=== PATIENT | female | born 1935 | race Caucasian/White ===

== ENCOUNTER 2016-07-25 19:22 | Emergency (ER) | payer MEDICARE ==
[~2016-07-25] VITALS: Ht 160 cm; Wt 61.2 kg
[~2016-07-25 19:22] MED LIST: ASPIRIN ADULT L81 M1 PO; CALCIUM + D 6001 TA1 PO; CALCIUM CARBONA1 TA1 PO; CALCIUM CITRAT200 MG PO; CARDIZEM120 MG PO; CEFTIN500 MG PO; CELEBREX200 MG PO; COLACE100 MG PO; COLACE100 MG/10; CORDROL20 MG PO; COUMADIN5 M2 PO; CYCLOBENZAPRINE5 M3 PO; DILTIAZEM120 MG PO; DUONEB 3 MG/3 ML3 M1 INH; Diltiazem180 MG PO; ELAVIL10 MG PO; FLOVENT 110 M110 MCG INH; FOSAMAX70 M1 PO; LISINOPRIL10 MG PO; LOMOTIL 0.025 M1 TA1 PO; LOPRESSOR25 MG PO; LYRICA50 M1 PO; MACROBID100 M1 PO; MULTI VITAMINS1 TAB PO; MYCOSTATIN100000 U/M PO; NEURONTIN300 MG PO; NEUTRA-PHOS F1.25 GM PO; PRAVACHOL40 MG PO; PRILOSEC OTC20 MG PO; PRILOSEC10 MG PO; PRILOSEC20 M1 PO; TESSALON PERLE100 M1 PO; TYLENOL325 M1 PO; TYLENOL650 MG R; VICODIN1 TAB PO
== END 2016-07-25 21:33 | disposition home or self-care (01) ==
LOC: ED 19:22
DX: S01.01XA Laceration without foreign body of scalp, initial encounter (principal); S09.90XA Unspecified injury of head, initial encounter; M25.551 Pain in right hip; Z86.73 Personal history of transient ischemic attack (TIA), and cerebral infarction without residual deficits; Z98.890 Other specified postprocedural states; Z79.82 Long term (current) use of aspirin; Z79.899 Other long term (current) drug therapy; Z88.6 Allergy status to analgesic agent; W18.09XA Striking against other object with subsequent fall, initial encounter; Y93.89 Activity, other specified; Y92.090 Kitchen in other non-institutional residence as the place of occurrence of the external cause; Y99.9 Unspecified external cause status

== ENCOUNTER 2017-01-01 21:12 | Emergency (ER) | payer MEDICARE ==
[~2017-01-01] VITALS: Ht 157.4 cm; Wt 56.7 kg
== END 2017-01-02 00:12 | disposition home or self-care (01) ==
LOC: ED 21:12
DX: S00.83XA Contusion of other part of head, initial encounter (principal); S09.93XA Unspecified injury of face, initial encounter; Z98.890 Other specified postprocedural states; Z79.82 Long term (current) use of aspirin; Z79.899 Other long term (current) drug therapy; Z88.6 Allergy status to analgesic agent; W01.198A Fall on same level from slipping, tripping and stumbling with subsequent striking against other object, initial encounter; Y93.89 Activity, other specified; Y92.89 Other specified places as the place of occurrence of the external cause; Y99.9 Unspecified external cause status

== ENCOUNTER 2017-04-05 22:02 | Inpatient (IN) | payer MEDICARE ==
[~2017-04-05] VITALS: Ht 162.5 cm; Wt 61.3 kg
--- NOTE | ~2017-04-05 | EKG ---
[place], [place] ELECTROCARDIOGRAM REPORT NAME: MARITO TOLBERT UNIT #: [id number] ROOM: 506 DOCTOR: RUI STERN MD,MANDI BIRTHDATE: [birth year] DOS: 04/06/2017 TIME: 10:43 p.m. Normal sinus rhythm was noted with heart rate of 98 beats per minute. LVH was noted based on the LVH criteria for the patient in the chest leads. Inversion of the T wave was also noted, most likely due to the LVH in the chest leads. MANDI FABIAN MD CM:EKGRPT:ELECTROCARDIOGRAM REPORT 39 [id number] MANDI STERN MD
--- NOTE | ~2017-04-05 | PR ---
[place], [place] PROGRESS NOTE NAME: MARITO TOLBERT UNIT #: [id number] ROOM: 506 DOCTOR: RUI STERN MD,MANDI BIRTHDATE: [birth year] DOS: 04/08/2017 SUBJECTIVE: She has been noted comfortable at this time without any acute distress. The coughing has been subsiding. Shortness of breath has been ____ gradually. The patient denies symptoms of hemoptysis. There were no sputum expectoration. OBJECTIVE: VITAL SIGNS: Normal temperature, respiratory rate 18, heart rate 99, blood pressure 127/74, pulse oxygen saturation on 2 liters nasal cannula 95% saturation recorded. HEENT: No acute change. NECK: Supple. CARDIOVASCULAR: S1, S2 audible. LUNGS: The patient was noted without any wheeze or crackles. ABDOMEN: Soft, nontender. EXTREMITIES: Without edema. LABORATORY DATA: BMP: CBC noted normal WBC count. BMP was still noted with hyponatremia, sodium 128. IMPRESSION: 1. Abnormal lymphadenopathy in the right hilar area with pulmonary infiltration. 2. Acute pneumonia as well was suspected. PLAN OF MANAGEMENT: No changes in the plan of management from pulmonary standpoint. Continue antibiotics, bronchodilators and oxygen supplementation. Obtain a chest x-ray in the morning to reassess the patient, respiratory ____ progression of the current right lung pulmonary process. MANDI FABIAN MD CM:PNTRANS [id number] MANDI STERN MD 04/09/17209 interface
--- NOTE | ~2017-04-05 | PR ---
[place], [place] PROGRESS NOTE NAME: MARITO TOLBERT UNIT #: [id number] ROOM: 506 DOCTOR: MANDI LUEVANO MD BIRTHDATE: [birth year] DOS: 04/09/2017 SUBJECTIVE: She has been ambulating with physical therapy. Shortness of breath has been improving. There was no coughing, wheezing reported. The patient denies symptoms of chest pain. OBJECTIVE: VITAL SIGNS: For the patient which were recorded showed the temperature noted as normal, respiratory rate 19, heart rate of 86, blood pressure 141/74 this morning. The pulse oxygen saturation recorded 93% this morning on room air at rest. HEENT: Showed no acute change. NECK: Supple. CARDIOVASCULAR: S1, S2 audible. LUNGS: Noted without any wheezing or crackles present time. ABDOMEN: Soft and nontender. EXTREMITIES: Without any acute edema. LABORATORY DATA: CBC this morning, mild anemia, otherwise normal. The BMP for the patient noted as sodium 130. IMAGING: Chest x-ray shows small left-sided pleural fluid with infiltration in the right lower lobe, was still suspected prominent right hilar area. IMPRESSION: The patient persistent mild for hyponatremia. Other radiologic abnormality were lymphadenopathy on the right side. Small left-sided pleural fluid, etiology unclear. PLAN OF TREATMENT: No change from the pulmonary standpoint, the patient may be considered for home discharge with a short-term follow by the primary care physician. She was recommended to have followup in my office for the current radiologic abnormality, especially lymphadenopathy and others to be assessed for possibility of malignancy. [place], [place] PROGRESS NOTE NAME: MARITO TOLBERT UNIT #: [id number] ROOM: 506 DOCTOR: MANDI LUEVANO MD BIRTHDATE: [birth year] MANDI FABIAN MD CM:PNTRANS [id number] MANDI STERN MD 04/09/17 1744 interface
--- NOTE | ~2017-04-05 | PR ---
[place], [place] PROGRESS NOTE [id number] UNIT #: [id number] ROOM: 506 DOCTOR: RUI STERN MD,MANDI BIRTHDATE: [birth year] DOS: 04/07/2017 SUBJECTIVE: She has been noted with a cough, which has been noted gradually decreased. There were no symptoms of chest pain or abdominal pain. Shortness of breath has been slowly resolving. OBJECTIVE: VITAL SIGNS: Normal temperature, respiratory rate 22, heart rate 104, blood pressure 146/80. The pulse oxygen saturation recorded on 2 liters is 94% saturation. HEENT: No new change. NECK: Supple. CARDIOVASCULAR: S1, S2 audible. LUNGS: With crackles of the lungs still noted in the ____ lower lung. ABDOMEN: Soft, nontender. Bowel sounds present. EXTREMITIES: Without any edema. LABORATORY DATA: BMP for the patient is normal BUN and creatinine. The CBC of the patient this morning, normal CBC except mild anemia. Blood culture, no bacterial growth from the 4th. IMPRESSION: The patient with acute pneumonia for the patient involving ____ lower lobe with lymphadenopathy most likely reactive for the patient; however, the appearance of the current infiltration and lymphadenopathy needs to be further considered, rule out any malignancy until the resolution is effectively documented with a followup CT scan in the next few weeks. PLAN OF TREATMENT: No changes in the plan of therapy. Continue the patient's current treatment plan of management. Possible discharge home for the patient in the next couple of days could be considered. Chest x-ray could be done in a couple of days for reassessment at that time. MANDI FABIAN MD CM:PNTRANS [id number] MANDI STERN MD 04/08/17 0038 interface
--- NOTE | ~2017-04-05 | CON ---
[place], [place] REPORT OF CONSULTATION NAME: MARITO TOLBERT [facility] #: [id number] UNIT #: [id number] ROOM: 506 DOCTOR: MANDI LUEVANO MD BIRTHDATE: [birth year] DOS: 04/06/2017 The consultation was requested by the hospitalist services. REASON FOR CONSULTATION: Assess the patient for acute pneumonia, failed outpatient treatment. HISTORY OF PRESENT ILLNESS: This is an 81-year-old white female who has been admitted to the hospital under the care of hospitalist services on 04/05/2017. She presented to the Emergency Room, as the patient developed acute respiratory symptoms of significant cough that started last week. The symptoms have been noted to progressively worsen. She had been prescribed Augmentin by the primary care physician for suspected pneumonia. The patient has been taking the medication and has not been noted effective. She has been noted with severe coughing without any sputum expectoration. She was also reported with symptoms of shortness of breath. There were no symptoms of chest pain described by the patient. Denies symptoms of fever or chills at home. REVIEW OF SYSTEMS: CONSTITUTIONAL: Fatigue and tiredness noted without symptoms of fever or chills. EYES: Denies any burning, redness, or tenderness. EAR, NOSE, AND THROAT: No symptoms of sore throat, hoarseness, otalgia, postnasal drainage or epistaxis. CARDIOVASCULAR: Denies any anginal pain, edema, or pain of the lower extremity. GASTROINTESTINAL: Reported diarrhea with use of Augmentin, which has been currently resolved. Denies symptoms of nausea, vomiting, hematemesis, melena, dysphagia, or any abnormal weight loss history. GENITOURINARY: No dysuria, suprapubic pain, or hematuria. MUSCULOSKELETAL: No acute joint pain, redness, or tenderness. SKIN: No abnormal lesions or rashes. Remaining systems were reviewed with the patient, they were noted all negative. PAST MEDICAL HISTORY: The patient was known with: 1. History of atrial fibrillation. 2. Osteoarthritis. 3. Essential hypertension. 4. Gastroesophageal reflux disease. 5. Hyperlipidemia. 6. Peripheral neuropathy. 7. History of osteopenia. PAST SURGICAL HISTORY: Noted for lumbar laminectomy. SOCIAL HISTORY: The patient has not been noted with history of tobacco, alcohol or any illicit drug use. FAMILY HISTORY: Both parents have been related to coronary artery disease complications. [place], [place] REPORT OF CONSULTATION NAME: MARITO TOLBERT UNIT #: [id number] ROOM: 506 DOCTOR: RUI STERN MD,MANDI BIRTHDATE: [birth year] HOME MEDICATIONS: Reported recent use of Augmentin, amitriptyline, Colace, multivitamin, lactulose p.r.n. use, pravastatin, Celebrex, lisinopril, calcium citrate, omeprazole, diltiazem, aspirin, Lyrica, and Fosamax. DRUG ALLERGIES: Noted with allergies to IBUPROFEN. PHYSICAL EXAMINATION: GENERAL: This is an 81-year-old female who has been currently noted to be awake and alert without any acute distress at the present time. VITAL SIGNS: Height were recorded on admission as 5 feet 4 inches, weight of 134 pounds, BMI 23. Normal temperature. The respiratory rate of the patient was recorded as 20 on admission, heart rate ranges between 107-108, and blood pressure 108/50-132/69. The pulse oxygen saturation of the patient was recorded as 92% on room air. HEENT: Examination shows head was atraumatic. Eyes nonicterus. NECK: Supple. CARDIOVASCULAR: S1, S2 is audible. LUNGS: Noted without any active wheezing. The crackles were noted in the lungs bilaterally. ABDOMEN: Soft, nontender. Bowel sounds are present. EXTREMITIES: Examination of the patient was not noted any edema, clubbing, or cyanosis. CENTRAL NERVOUS SYSTEM: Cranial nerves 2-12 intact. MUSCULOSKELETAL: Does not show any acute deformities. SKIN: Showed no lesions or rashes. LABORATORY DATA: CBC of the patient that was done on 04/05/2017, on admission, normal WBC count, hemoglobin 11, hematocrit 32.6, and platelet count were normal. PT/INR for the patient noted as normal. Lactic acid was 1.2 yesterday. Influenza A and B, nasal washing antigen negative. CMP of the patient, normal BUN and creatinine, sodium 126, chloride of 88. Remaining LFTs were normal. CBC of the patient that was done this morning, mild anemia, otherwise remains normal. PT/INR normal today. CMP this morning, BUN and creatinine were normal. Sodium 129, chloride of 93. ____ for the patient was noted with random as 77. Urine osmolality is noted low. Stool for C. diff toxins were negative. Review of the radiology data: The chest x-ray of the patient that was done on 04/06/2017 shows bilateral pleural fluid was noted with possible congestive heart failure. The fluid was noted larger on the right than the left side. The CT scan of the chest that was done for the patient on this morning was personally reviewed. There was no evidence of pulmonary embolism. Left lung was noted clear. Area of atelectasis associated infiltration noted in right middle lobe and lateral part of the right lower lobe subsegment has a dense consolidation with the addition of infiltration noted at right basilar subsegments. Lymphadenopathy was also noted in the right hilar area appeared to be significant at this time. IMPRESSION: 1. The patient has been currently admitted to the hospital. The patient was noted with finding of possibly pneumonia. However, the current finding of [place], [place] REPORT OF CONSULTATION NAME: MARTIO TOLBERT UNIT #: [id number] ROOM: 506 DOCTOR: MANDI LUEVANO MD BIRTHDATE: [birth year] lymphadenopathy does raise the possibility of malignancy. The patient to be considered and assessed further. 2. History of chronic atrial fibrillation and anemia of chronic disease. ____ etiology could be considered as well. 3. Hyponatremia may be related to diarrhea induced by the medication Augmentin; however paraneoplastic syndrome remains in consideration. The patient was noted with elevated sodium level, which might be suggestive of SIADH picture. PLAN OF MANAGEMENT: Agree with the use of the antibiotic for this patient different than the Augmentin. Monitor and management of the hyponatremia adequately. Definitive assessment until resolution of current problem. If it remains persistent, certainly malignancy would be further assessed for this patient with a PET scan. Consider bronchoscopy as well because of right middle lobe atelectasis, rule out endobronchial lesion as well. This will be discussed with the patient later on. Other supportive therapy, plan of management and care plan. Usual treatment, other care and therapies. Thanks for allowing me to participate in the care of this patient. MANDI FABIAN MD CM:CONSTR:REPORT OF CONSULTATION 1638 04/07/17 0410 interface
[~2017-04-05 22:02] MED LIST changes: +AMITRIPTYLINE25 MG PO; +MULTIVITAMINS1 EAC5 PO
[2017-04-05 22:12] VITALS: BP 135/73
[2017-04-05 22:56] LABS: BASO % 0.1 % (0.0-1.0); EOS # 0.2 10*3/uL (0.0-0.4); EOS % 2.7 % (1.0-4.0); HEMATOCRIT 32.6 % (37.0-47.0); LYMPH # 1.4 10*3/uL (1.3-4.4); LYMPH % 15.7 % (27.0-41.0); MEAN CELL VOLUME 90.8 fl (81.0-99.0); MEAN CORPUSCULAR HGB 30.6 pg (27.0-31.0); MEAN CORPUSCULAR HGB CONC 33.7 g/dl (33.0-37.0); MEAN PLATELET VOLUME 9.6 fl (9.6-12.3); MONO # 0.8 10*3/uL (0.1-1.0); MONO % 8.8 % (3.0-9.0); NEUT # 6.4 10*3/uL (2.3-7.9); NEUT % 72.4 % (47.0-73.0); PLATELET COUNT AUTOMATED 214 10*3/uL (130-400); RED BLOOD COUNT 3.59 10*6/uL (4.10-5.10); RED CELL DISTRI WIDTH 12.7 % (0-14.5); WHITE BLOOD COUNT 8.9 10*3/uL (4.8-10.8)
[2017-04-05 23:13] LABS: ALBUMIN 3.5 gm/dl (3.1-4.5); ALKALINE PHOSPHATASE 84 U/L (45-117); BUN 11 mg/dl (7-24); CHLORIDE 88 mmol/L (98-107); CREATININE 0.64 mg/dL (0.55-1.02); POTASSIUM 3.6 mmol/L (3.5-5.1); SGOT/AST 24 IU/L (3-35); SGPT/ALT 18 U/L (12-78); SODIUM 126 mmol/L (136-145); TOTAL PROTEIN 7.7 gm/dL (6.4-8.2)
[2017-04-05 23:18] LABS: TROPONIN I < 0.015 ng/ml (<0.045)
[2017-04-05 23:33] VITALS: BP 132/69
[2017-04-06] VITALS (7 sets, daily range): BP systolic 108–176; BP diastolic 50–79
[2017-04-06] MEDS ORDERED: TYLENOL EXTRA500 MG PO (03:50)
[2017-04-06] MEDS ORDERED: CONSTULOSE10 GM/151 PO (03:55)
[2017-04-06] MEDS ORDERED: AUGMENTIN 875-875 MG PO (03:55)
[2017-04-06 07:00] LABS: BASO % 0.3 % (0.0-1.0); EOS # 0.2 10*3/uL (0.0-0.4); HEMATOCRIT 31.6 % (37.0-47.0); HEMOGLOBIN 10.8 g/dl (12.0-16.0); LYMPH # 1.1 10*3/uL (1.3-4.4); MEAN CELL VOLUME 91.6 fl (81.0-99.0); MEAN CORPUSCULAR HGB 31.3 pg (27.0-31.0); MEAN CORPUSCULAR HGB CONC 34.2 g/dl (33.0-37.0); MEAN PLATELET VOLUME 9.7 fl (9.6-12.3); MONO # 0.6 10*3/uL (0.1-1.0); MONO % 7.4 % (3.0-9.0); NEUT # 6.7 10*3/uL (2.3-7.9); PLATELET COUNT AUTOMATED 210 10*3/uL (130-400); RED BLOOD COUNT 3.45 10*6/uL (4.10-5.10); RED CELL DISTRI WIDTH 12.8 % (0-14.5); WHITE BLOOD COUNT 8.7 10*3/uL (4.8-10.8)
[2017-04-06 07:35] LABS: CHLORIDE 93 mmol/L (98-107); POTASSIUM 3.6 mmol/L (3.5-5.1); SODIUM 129 mmol/L (136-145)
[2017-04-06 07:52] LABS: ALBUMIN 3.2 gm/dl (3.1-4.5); ALKALINE PHOSPHATASE 76 U/L (45-117); BUN 6 mg/dl (7-24); CHOLESTEROL 106 mg/dL (<200); CREATININE 0.48 mg/dL (0.55-1.02); HDL CHOLESTEROL 67 mg/dl (40-60); LDL CHOLESTEROL 32 mg/dL (9-159); PHOSPHOROUS 2.8 mg/dL (2.5-4.9); SGOT/AST 22 IU/L (3-35); SGPT/ALT 17 U/L (12-78); TRIGLYCERIDES 35 mg/dl (<150); VLDL CHOLESTEROL 7 mg/dL (6-40)
[2017-04-06 08:13] LABS: VITAMIN D, 25-HYDROXY 22.4 ng/mL (30-100)
[2017-04-06 12:11] LABS: URINE CREATININE RANDOM 24.8 mg/dL
[2017-04-07] VITALS: BP 144/74
[2017-04-07 07:06] LABS: BASO % 0.4 % (0.0-1.0); EOS # 0.2 10*3/uL (0.0-0.4); EOS % 2.7 % (1.0-4.0); HEMATOCRIT 31.4 % (37.0-47.0); HEMOGLOBIN 10.6 g/dl (12.0-16.0); LYMPH # 1.1 10*3/uL (1.3-4.4); LYMPH % 14.7 % (27.0-41.0); MEAN CELL VOLUME 91.8 fl (81.0-99.0); MEAN CORPUSCULAR HGB CONC 33.8 g/dl (33.0-37.0); MEAN PLATELET VOLUME 10.1 fl (9.6-12.3); MONO # 0.7 10*3/uL (0.1-1.0); MONO % 9.5 % (3.0-9.0); NEUT # 5.3 10*3/uL (2.3-7.9); NEUT % 72.4 % (47.0-73.0); PLATELET COUNT AUTOMATED 255 10*3/uL (130-400); RED BLOOD COUNT 3.42 10*6/uL (4.10-5.10); RED CELL DISTRI WIDTH 12.7 % (0-14.5); WHITE BLOOD COUNT 7.4 10*3/uL (4.8-10.8)
[2017-04-07 07:32] LABS: ALBUMIN 3.1 gm/dl (3.1-4.5); BUN 6 mg/dl (7-24); CHLORIDE 93 mmol/L (98-107); CREATININE 0.44 mg/dL (0.55-1.02); PHOSPHOROUS 2.7 mg/dL (2.5-4.9); POTASSIUM 3.5 mmol/L (3.5-5.1); SODIUM 129 mmol/L (136-145)
[2017-04-07 08:00] VITALS: BP 146/80
[2017-04-07 12:00] VITALS: BP 116/64
[2017-04-07 16:00] VITALS: BP 138/72
[2017-04-07 20:00] VITALS: BP 129/65
[2017-04-08] VITALS: BP 128/66
[2017-04-08 07:14] LABS: BASO % 0.4 % (0.0-1.0); EOS # 0.4 10*3/uL (0.0-0.4); HEMATOCRIT 33.9 % (37.0-47.0); HEMOGLOBIN 11.4 g/dl (12.0-16.0); LYMPH # 1.6 10*3/uL (1.3-4.4); LYMPH % 23.2 % (27.0-41.0); MEAN CELL VOLUME 90.9 fl (81.0-99.0); MEAN CORPUSCULAR HGB 30.6 pg (27.0-31.0); MEAN CORPUSCULAR HGB CONC 33.6 g/dl (33.0-37.0); MEAN PLATELET VOLUME 9.8 fl (9.6-12.3); MONO # 0.7 10*3/uL (0.1-1.0); MONO % 10.2 % (3.0-9.0); NEUT # 4.3 10*3/uL (2.3-7.9); NEUT % 60.5 % (47.0-73.0); PLATELET COUNT AUTOMATED 307 10*3/uL (130-400); RED BLOOD COUNT 3.73 10*6/uL (4.10-5.10); RED CELL DISTRI WIDTH 12.7 % (0-14.5); WHITE BLOOD COUNT 7.1 10*3/uL (4.8-10.8)
[2017-04-08 07:39] LABS: BUN 6 mg/dl (7-24); CHLORIDE 93 mmol/L (98-107); CREATININE 0.54 mg/dL (0.55-1.02); POTASSIUM 3.7 mmol/L (3.5-5.1); SODIUM 128 mmol/L (136-145)
[2017-04-08 08:00] VITALS: BP 140/73
[2017-04-08 12:00] VITALS: BP 110/59
[2017-04-08 16:00] VITALS: BP 127/74
[2017-04-08 20:00] VITALS: BP 112/88
[2017-04-09] VITALS: BP 144/67
[2017-04-09 07:04] LABS: BASO % 0.5 % (0.0-1.0); EOS # 0.3 10*3/uL (0.0-0.4); EOS % 4.2 % (1.0-4.0); HEMATOCRIT 31.9 % (37.0-47.0); HEMOGLOBIN 10.8 g/dl (12.0-16.0); LYMPH # 1.7 10*3/uL (1.3-4.4); LYMPH % 21.5 % (27.0-41.0); MEAN CELL VOLUME 91.7 fl (81.0-99.0); MEAN CORPUSCULAR HGB CONC 33.9 g/dl (33.0-37.0); MEAN PLATELET VOLUME 9.8 fl (9.6-12.3); MONO # 0.8 10*3/uL (0.1-1.0); MONO % 10.8 % (3.0-9.0); NEUT # 4.8 10*3/uL (2.3-7.9); PLATELET COUNT AUTOMATED 330 10*3/uL (130-400); RED BLOOD COUNT 3.48 10*6/uL (4.10-5.10); RED CELL DISTRI WIDTH 12.7 % (0-14.5); WHITE BLOOD COUNT 7.7 10*3/uL (4.8-10.8)
[2017-04-09 07:34] LABS: ALBUMIN 3.1 gm/dl (3.1-4.5); BUN 10 mg/dl (7-24); CHLORIDE 95 mmol/L (98-107); CREATININE 0.56 mg/dL (0.55-1.02); PHOSPHOROUS 3.4 mg/dL (2.5-4.9); POTASSIUM 3.8 mmol/L (3.5-5.1); SODIUM 130 mmol/L (136-145)
[2017-04-09 08:00] VITALS: BP 141/74
[2017-04-09] MEDS ORDERED: VITAMIN D-32000 UNI1 PO (10:44)
[2017-04-09] MEDS ORDERED: SODIUM CHLORIDE1 GM PO (10:44)
[2017-04-09] MEDS ORDERED: LEVAQUIN750 M1 PO (10:44)
[2017-04-10 02:05] LABS: ADENOVIRUS Negative (Negative); INFLUENZA A Negative (Negative); INFLUENZA B Negative (Negative); METAPNEUMOVIRUS Negative (Negative); PARAINFLUENZA 1 Negative (Negative); PARAINFLUENZA 2 Negative (Negative); PARAINFLUENZA 3 Negative (Negative); RHINOVIRUS Negative (Negative); RSV A Negative (Negative); RSV B Positive (Negative)
== END 2017-04-09 12:57 | disposition home or self-care (01) | DRG 871 ==
LOC: ED 22:02 → 5E 04-06 01:09 → EDHOLD 04-06 01:09 → 5E 04-06 01:23
PROVIDERS: Emergency Medicine; Emergency Medicine Emergency Medical Services; Family Medicine; Hospitalist; Internal Medicine Nephrology; Student in an Organized Health Care Education/Training Program
DX: A41.9 Sepsis, unspecified organism (principal); J18.1 Lobar pneumonia, unspecified organism; K52.1 Toxic gastroenteritis and colitis; E87.8 Other disorders of electrolyte and fluid balance, not elsewhere classified; G62.9 Polyneuropathy, unspecified; E83.41 Hypermagnesemia; I48.2 Chronic atrial fibrillation; E87.1 Hypo-osmolality and hyponatremia; I69.351 Hemiplegia and hemiparesis following cerebral infarction affecting right dominant side; E86.0 Dehydration; K21.9 Gastro-esophageal reflux disease without esophagitis; M85.80 Other specified disorders of bone density and structure, unspecified site; R73.9 Hyperglycemia, unspecified; E78.2 Mixed hyperlipidemia; I10 Essential (primary) hypertension; R59.0 Localized enlarged lymph nodes; D63.8 Anemia in other chronic diseases classified elsewhere; T36.0X5A Adverse effect of penicillins, initial encounter; M19.90 Unspecified osteoarthritis, unspecified site; Z88.8 Allergy status to other drugs, medicaments and biological substances; Z78.9 Other specified health status; Z79.899 Other long term (current) drug therapy; Z79.82 Long term (current) use of aspirin; Z82.49 Family history of ischemic heart disease and other diseases of the circulatory system; Z80.8 Family history of malignant neoplasm of other organs or systems; Y92.89 Other specified places as the place of occurrence of the external cause

== ENCOUNTER 2017-06-03 01:43 | Emergency (ER) | payer MEDICARE ==
[~2017-06-03 01:43] MED LIST changes: +AUGMENTIN 875-875 MG PO; +CONSTULOSE10 GM/151 PO; +LEVAQUIN750 M1 PO; +SODIUM CHLORIDE1 GM PO; +TYLENOL EXTRA500 MG PO; +VITAMIN D-32000 UNI1 PO
== END 2017-06-03 03:19 | disposition left against medical advice (07) ==
LOC: ED 01:43
DX: M13.842 Other specified arthritis, left hand (principal); I10 Essential (primary) hypertension; I48.91 Unspecified atrial fibrillation; K21.9 Gastro-esophageal reflux disease without esophagitis; E78.00 Pure hypercholesterolemia, unspecified; E78.5 Hyperlipidemia, unspecified; Z79.82 Long term (current) use of aspirin; Z88.6 Allergy status to analgesic agent

== ENCOUNTER 2018-07-14 22:49 | Emergency (ER) | payer MEDICARE ==
[~2018-07-14] VITALS: Ht 160 cm; Wt 61.2 kg
== END 2018-07-15 01:08 | disposition home or self-care (01) ==
LOC: ED 22:49
DX: S61.402A Unspecified open wound of left hand, initial encounter (principal); S60.222A Contusion of left hand, initial encounter; S00.03XA Contusion of scalp, initial encounter; Z98.890 Other specified postprocedural states; Z79.82 Long term (current) use of aspirin; Z79.899 Other long term (current) drug therapy; Z88.6 Allergy status to analgesic agent; W01.198A Fall on same level from slipping, tripping and stumbling with subsequent striking against other object, initial encounter; Y93.89 Activity, other specified; Y92.89 Other specified places as the place of occurrence of the external cause; Y99.9 Unspecified external cause status

== ENCOUNTER 2018-12-03 21:37 | Emergency (ER) | payer MEDICARE ==
[~2018-12-03] VITALS: Ht 162.5 cm; Wt 59.0 kg
== END 2018-12-04 01:24 | disposition home or self-care (01) ==
LOC: ED 21:37
DX: S20.211A Contusion of right front wall of thorax, initial encounter (principal); S09.90XA Unspecified injury of head, initial encounter; Z88.8 Allergy status to other drugs, medicaments and biological substances; Z79.899 Other long term (current) drug therapy; Z79.82 Long term (current) use of aspirin; W01.198A Fall on same level from slipping, tripping and stumbling with subsequent striking against other object, initial encounter; Y93.89 Activity, other specified; Y92.098 Other place in other non-institutional residence as the place of occurrence of the external cause; Y99.8 Other external cause status

== ENCOUNTER 2018-12-07 21:23 | Emergency (ER) | payer MEDICARE ==
[~2018-12-07] VITALS: Ht 162.5 cm; Wt 61.2 kg
--- NOTE | ~2018-12-07 | EKG ---
[place], [place] ELECTROCARDIOGRAM REPORT NAME: MARITO TOLBERT UNIT #: [id number] ROOM: DOCTOR: EPIPHANY DRAFT REPORT BIRTHDATE: [birth year] [facility] Test Date: 2018-12-07 Test Time: 22:06:06 Pat Name: MARITO TOLBERT Department: Room: [facility] Gender: F [employer] Production Technician: Martha Cueto : 1935 Requested By: ERICKA MOTTA Order Number: [id number] Reading MD: Lance Murillo MD Measurements Intervals Jameson Rate: 77 P: 60 RI: 166 QRS: 31 QRSD: 90 T: 92 QT: 359 QTc: 407 Interpretive Statements Sinus rhythm Atrial premature complex Probable left atrial enlargement Probable LVH with secondary repol abnrm Anterior Q waves, possibly due to LVH No previous ECG available for comparison Electronically Signed On 12-08-2018 7:48:06 PDT by Lance Murillo MD CM:EKGRPT:ELECTROCARDIOGRAM REPORT 05 [id number] ERICKA MOTTA MD EPIPHANY DRAFT REPORT ERICKA MOTTA MD
[2018-12-07 21:27] VITALS: BP 142/88
--- NOTE | 2018-12-07 21:32 | NUR ---
PT TO BATHROOM UPON ARRIVAL TO EXAM ROOM. REPORTS DIARRHEA. GAIT SLOW, BUT STEADY. AT BEDSIDE. PROVIDED WITH SPECIMEN HAT FOR IN TOILET. VS TO BE OBTAINED WHEN PT IS FINISHED USING THE BATHROOM.
[2018-12-07 22:32] LABS: BASO # 0.1 10*3/uL (0.0-0.1); BASO % 0.4 % (0.0-1.0); EOS # 0.3 10*3/uL (0.0-0.4); EOS % 2.5 % (1.0-4.0); HEMATOCRIT 34.6 % (37.0-47.0); HEMOGLOBIN 11.5 g/dl (12.0-16.0); LYMPH # 1.2 10*3/uL (1.3-4.4); LYMPH % 10.3 % (27.0-41.0); MEAN CELL VOLUME 94.5 fl (81.0-99.0); MEAN CORPUSCULAR HGB 31.4 pg (27.0-31.0); MEAN CORPUSCULAR HGB CONC 33.2 g/dl (33.0-37.0); MEAN PLATELET VOLUME 10.9 fl (9.6-12.3); MONO # 0.9 10*3/uL (0.1-1.0); MONO % 7.9 % (3.0-9.0); NEUT % 78.5 % (47.0-73.0); PLATELET COUNT AUTOMATED 246 10*3/uL (130-400); RED BLOOD COUNT 3.66 10*6/uL (4.10-5.10); RED CELL DISTRI WIDTH 13.1 % (0-14.5); WHITE BLOOD COUNT 11.4 10*3/uL (4.8-10.8)
[2018-12-07 22:45] LABS: ACT PARTIAL THROMBO TIME 31.1 SECONDS (20.0-32.1); INTERNATIONAL NORM RATIO 0.9 (2.0-3.5)
[2018-12-07 22:48] LABS: ALBUMIN 3.6 gm/dl (3.1-4.5); ALKALINE PHOSPHATASE 86 U/L (45-117); BUN 18 mg/dl (7-24); CHLORIDE 93 mmol/L (98-107); CREATININE 0.74 mg/dL (0.55-1.02); LIPASE 67 U/L (73-393); SGOT/AST 24 IU/L (3-35); SGPT/ALT 17 U/L (12-78); SODIUM 126 mmol/L (136-145); TOTAL PROTEIN 7.6 gm/dL (6.4-8.2)
[2018-12-07 22:52] LABS: TROPONIN I < 0.015 ng/ml (<0.045)
[2018-12-08] MEDS ORDERED: CELECOXIB200 M1 PO (08:45)
== END 2018-12-08 01:00 | disposition left against medical advice (07) ==
LOC: ED 21:23 → EDHOLD 12-08 00:48 → ED 12-08 00:48
PROVIDERS: Emergency Medicine Emergency Medical Services
DX: S22.070A Wedge compression fracture of T9-T10 vertebra, initial encounter for closed fracture (principal); K52.9 Noninfective gastroenteritis and colitis, unspecified; E87.1 Hypo-osmolality and hyponatremia; Z88.6 Allergy status to analgesic agent; Z79.899 Other long term (current) drug therapy; Z79.82 Long term (current) use of aspirin; W19.XXXA Unspecified fall, initial encounter; Y93.89 Activity, other specified; Y92.89 Other specified places as the place of occurrence of the external cause; Y99.8 Other external cause status

== ENCOUNTER 2018-12-08 07:31 | Inpatient (IN) | payer MEDICARE ==
[~2018-12-08] VITALS: Ht 162.5 cm; Wt 64.2 kg
[2018-12-08 07:34] VITALS: BP 132/76
--- NOTE | 2018-12-08 07:35 | NUR ---
PT IS UNSURE WHY SHE HAS RETURNED OTHER THAN TO SAY SHE HAS LOW ABDOMEN PAIN AND LOW BACK PAIN. UNSURE WHEN THIS BEGAN. SHE BELEIEVES PREVIOUS SHIFT PROVIDER WANTED HER TO BE ADMITTED FOR "SOMETHING". FAMILY AT BEDSIDE IS ALSO UNSURE WHAT ISSUE IS ONGOING. PT IS AWAKE AND ALERT, NO OBJECTIVE DISTRESS.
[2018-12-08 08:10] VITALS: BP 125/66
--- NOTE | 2018-12-08 08:10 | NUR ---
A 83, admitted to 4E, under the services of JENNIFER Herrera DO with a diagnosis of COMPRESSION FRACTURE T10 VERTEBRA, ABD PAIN. Chief complaint is FALL. Patient arrived via bed from ER. Monitor applied. Initial assessment completed. Vital signs taken and recorded. JENNIFER HERRERA DO notified of admission to the unit. Orders received. See assessment for past medical history, medications and allergies. Patient and/or family oriented to unit. [facility] visitation policy reviewed. Clothing/patient valuable form completed. MALA DOSHI
[2018-12-08] MEDS ORDERED: CELECOXIB200 M1 PO (08:45)
--- NOTE | 2018-12-08 08:52 | NUR ---
DR. MISTRY NOTIFIED OF COMPLETE MED REC.
--- NOTE | 2018-12-08 11:00 | NUR ---
SUPPOSITORY ORDERED AND GIVEN FOR C/O OF CONSTIPATION. DOCTOR NOTIFIED.
--- NOTE | 2018-12-08 11:30 | NUR ---
DR. ESPINOZA NOTIFIED OF CONSULT. ORDERS RECEIVED.
[2018-12-08 12:00] VITALS: BP 145/69
[2018-12-08 12:02] LABS: BUN 12 mg/dl (7-24); CHLORIDE 97 mmol/L (98-107); CREATININE 0.62 mg/dL (0.55-1.02); POTASSIUM 3.9 mmol/L (3.5-5.1); SODIUM 131 mmol/L (136-145)
--- NOTE | 2018-12-08 12:25 | NUR ---
DR. ESPINOZA NOTIFIED OF NEW SODIUM. SHE WILL BE IN TO SEE PT.
--- NOTE | 2018-12-08 13:00 | NUR ---
PT STATES SHE STILL HAS NOT HAD A BM. STATES IT IS "LIQUID LIKE" ALSO STATES HAD MAG CITRATE 2 TIMES SUNDAY WITH NO RELIEF. PT IS GOING TO TRY WALKING AROUND AT THIS TIME.
--- NOTE | 2018-12-08 15:00 | NUR ---
PT STATES THAT SHE DOES NOT WANT ORAL DULCOLAX. "IT WONT WORK, I NEED SOMETHING STRONGER"
--- NOTE | 2018-12-08 15:30 | NUR ---
DR. AUGUSTE NOTIFIED OF PT BEING UNABLE TO MOVE HER BOWELS. NO NEW ORDERS AT THIS TIME. WILL CONTINUE TO ASSESS PT.
[2018-12-08 16:00] VITALS: BP 167/90
--- NOTE | 2018-12-08 16:22 | NUR ---
MIRALAX GIVEN PER ORDER FOR CONSTIPATION. WILL CONTINUE TO ASSESS.
--- NOTE | 2018-12-08 19:29 | NUR ---
DR. ESPINOZA NOTIFIED OF ELEVATED BP. 167/90. AWAITING ORDERS.
[2018-12-08 20:00] VITALS: BP 158/85
--- NOTE | 2018-12-08 20:48 | NUR ---
C/O BACK PAIN, HEATING PAD APPLIED FOR RELIEF. WILL ADALI. CALL LIGHT IN REACH. FAMILY AT BEDSIDE. NORCO ALSO GIVEN AT THIS TIME.
--- NOTE | 2018-12-08 20:49 | NUR ---
K-PAD APPLIED TO BACK FOR PAIN RATED 8/10. NORCO ALSO GIVEN. WILL MONITOR FOR EFFECTIVENESS. CALL LIGHT IN REACH. FAMILY AT BEDSIDE.
[2018-12-09] VITALS: BP 139/82
--- NOTE | 2018-12-09 02:37 | NUR ---
PRN NORCO GIVEN FOR COMPLAINTS OF BACK PAIN RATED A 6/10. MONITOR FOR EFFECTIVENESS.
--- NOTE | 2018-12-09 03:30 | NUR ---
RE-EVALUATED. PRN NORCO EFFECTIVE. PAIN IS IMPROVED PER PT. CONTINUE TO MONITOR PT
[2018-12-09 03:37] LABS: BILIRUBIN NEGATIVE (NEGATIVE); BLOOD TRACE-INTACT (NEGATIVE); CLARITY CLEAR (CLEAR); COLOR YELLOW (YELLOW); GLUCOSE NEGATIVE (NEGATIVE); KETONE NEGATIVE (NEGATIVE); LEUKO ESTERASE NEGATIVE (NEGATIVE); NITRITE NEGATIVE (NEGATIVE); UROBILINOGEN 0.2 E.U./dl (0.2-1.0)
[2018-12-09 03:46] LABS: WBC 0-2 wbc/hpf (0-5)
[2018-12-09 03:47] LABS: BACTERIA TRACE
[2018-12-09 06:23] LABS: BASO % 0.6 % (0.0-1.0); EOS # 0.2 10*3/uL (0.0-0.4); EOS % 3.7 % (1.0-4.0); HEMATOCRIT 29.8 % (37.0-47.0); HEMOGLOBIN 9.9 g/dl (12.0-16.0); LYMPH # 1.5 10*3/uL (1.3-4.4); LYMPH % 24.2 % (27.0-41.0); MEAN CELL VOLUME 93.1 fl (81.0-99.0); MEAN CORPUSCULAR HGB 30.9 pg (27.0-31.0); MEAN CORPUSCULAR HGB CONC 33.2 g/dl (33.0-37.0); MONO # 0.7 10*3/uL (0.1-1.0); MONO % 11.3 % (3.0-9.0); NEUT # 3.7 10*3/uL (2.3-7.9); NEUT % 59.9 % (47.0-73.0); PLATELET COUNT AUTOMATED 225 10*3/uL (130-400); WHITE BLOOD COUNT 6.2 10*3/uL (4.8-10.8)
[2018-12-09 06:33] LABS: ALBUMIN 2.8 gm/dl (3.1-4.5); BUN 7 mg/dl (7-24); CHLORIDE 98 mmol/L (98-107); CREATININE 0.44 mg/dL (0.55-1.02); PHOSPHOROUS 2.2 mg/dL (2.5-4.9); POTASSIUM 3.7 mmol/L (3.5-5.1); SGOT/AST 20 IU/L (3-35); SGPT/ALT 15 U/L (12-78); SODIUM 131 mmol/L (136-145)
[2018-12-09 06:40] LABS: ALKALINE PHOSPHATASE 74 U/L (45-117); TOTAL PROTEIN 6.3 gm/dL (6.4-8.2)
[2018-12-09 08:00] VITALS: BP 156/84
--- NOTE | 2018-12-09 08:10 | NUR ---
PT RESTING IN BED. RESP-EASY AND REGULAR. ASSISTED TO BATHROOM AND BACK TO BED. NO C/O AT THIS TIME. CALL LIGHT IN REACH. SEE SHIFT ASSESSMENT. BED ALARM ON.
--- NOTE | 2018-12-09 09:00 | NUR ---
Foundation Digger in to talk to patient. Patient states lives at home with . There are few steps in the home. Physician: lisa abbott Pharmacy: [facility] health services: none Patient's level of ADLs: INDEPENDENT Patient has working utilities: all working DME: none Follow-up physician's appointment after d/c: will be made by hospitalist nurse director upon discharge Does patient want to access PORTAL?: no Discharge plan discussed with patient, she states she lives at home with her , she is independent in adls and ambulation, drives, she states she will be returning home when able and denies any home needs. SOLITARIO SAMUEL
[2018-12-09 09:09] LABS: VITAMIN D, 25-HYDROXY 25.8 ng/mL (30-100)
--- NOTE | 2018-12-09 09:30 | NUR ---
SITTING UP IN BED. TOLERATED ROUTINE MED WITH NO PROBLEM. NO C/O AT THIS TIME. CALL LIGHT IN REACH.
--- NOTE | 2018-12-09 10:30 | NUR ---
STATES PAIN MEDICATION HELPS. NO NEW COMPLAINTS AT THIS TIME. CALL LIGHT IN REACH.
[2018-12-09 12:00] VITALS: BP 140/85
--- NOTE | 2018-12-09 13:25 | NUR ---
PHYSICAL THERAPY Physical therapy evaluation offered. Patient reports that she has been up/walking around in room, and states that she does not need skilled PT services at this time or while at this facility, stating that it would be a "waste of time." Educated patient on importance of continued mobility througout stay. Patient continues to deny PT needs. Discharge of PT orders per patient request. Thank you. Destiny Tello,PT,DPT.
--- NOTE | 2018-12-09 13:28 | NUR ---
Occupational therapy orders received and chart reviewed. Patient was in bed upon arrival with family member in the room. Per patient, she has been up moving in the room, walking to the restroom, and dressing independently. Patient stated doing OT eval and future treatment would be a "waste of time". Patient orders to be discharged at this time. Thank you for the referral. Surekha Vera, OTR/L
--- NOTE | 2018-12-09 13:35 | NUR ---
Occupational therapy orders received and chart reviewed. Patient was in bed with family member present in room. Per patient, she is independent in the room with ADLs and functional mobility. Patient was educated on benefits of occupational therapy; however, she denied therapy. Per patient, OT eval and treatment is a "waste of time." Thank you for the referral. Surekha Vera, OTR/L
--- NOTE | 2018-12-09 15:00 | NUR ---
RESTING IN BED. RESP-EASY AND REGULAR. NO C/O AT THIS TIME. CALL LIGHT IN REACH.
--- NOTE | 2018-12-09 16:24 | NUR ---
Discharge instructions reviewed with patient/family. Patient receptive and verbalizes understanding. Follow-up care arranged. Written instructions given to patient/family. HEPLOCK REMOVED 2X2 APPLIED. VISITOR AT HER SIDE. BLAIR NIETO
--- NOTE | 2018-12-09 17:20 | NUR ---
PT ASSISTED VIA WHEELCHAIR FOR DISCHARGE WITH VISITOR AT HER SIDE.
== END 2018-12-09 17:21 | disposition home or self-care (01) | DRG 552 ==
LOC: ED 07:31 → 4E 07:51 → EDHOLD 07:51 → 4E 07:57
PROVIDERS: Hospitalist; Internal Medicine Nephrology; ADMIT Internal Medicine
DX: S22.079A Unspecified fracture of T9-T10 vertebra, initial encounter for closed fracture (principal); E87.1 Hypo-osmolality and hyponatremia; K59.00 Constipation, unspecified; I10 Essential (primary) hypertension; E78.5 Hyperlipidemia, unspecified; K21.9 Gastro-esophageal reflux disease without esophagitis; D72.829 Elevated white blood cell count, unspecified; G62.9 Polyneuropathy, unspecified; M19.90 Unspecified osteoarthritis, unspecified site; E87.8 Other disorders of electrolyte and fluid balance, not elsewhere classified; E83.41 Hypermagnesemia; I48.0 Paroxysmal atrial fibrillation; R79.82 Elevated C-reactive protein (CRP); E83.51 Hypocalcemia; E83.39 Other disorders of phosphorus metabolism; W18.30XA Fall on same level, unspecified, initial encounter; Y93.89 Activity, other specified; Y92.89 Other specified places as the place of occurrence of the external cause; Y99.8 Other external cause status; Z86.73 Personal history of transient ischemic attack (TIA), and cerebral infarction without residual deficits; Z88.6 Allergy status to analgesic agent; Z82.49 Family history of ischemic heart disease and other diseases of the circulatory system; Z80.8 Family history of malignant neoplasm of other organs or systems; Z79.82 Long term (current) use of aspirin; Z79.899 Other long term (current) drug therapy

== ENCOUNTER 2019-05-22 13:44 | Emergency (ER) | payer MEDICARE ==
[~2019-05-22] VITALS: Ht 160 cm; Wt 61.2 kg
[~2019-05-22 13:44] MED LIST changes: +CELECOXIB200 M1 PO
[2019-05-22 15:47] LABS: CLARITY CLEAR (CLEAR); COLOR YELLOW (YELLOW)
[2019-05-22 15:48] LABS: BASO % 0.7 % (0.0-1.0); EOS # 0.1 10*3/uL (0.0-0.4); EOS % 1.2 % (1.0-4.0); HEMATOCRIT 39.6 % (37.0-47.0); HEMOGLOBIN 12.9 g/dl (12.0-16.0); LYMPH # 1.1 10*3/uL (1.3-4.4); LYMPH % 19.5 % (27.0-41.0); MEAN CELL VOLUME 95.7 fl (81.0-99.0); MEAN CORPUSCULAR HGB 31.2 pg (27.0-31.0); MEAN CORPUSCULAR HGB CONC 32.6 g/dl (33.0-37.0); MEAN PLATELET VOLUME 10.9 fl (9.6-12.3); MONO # 0.5 10*3/uL (0.1-1.0); MONO % 9.2 % (3.0-9.0); NEUT % 68.9 % (47.0-73.0); PLATELET COUNT AUTOMATED 229 10*3/uL (130-400); RED BLOOD COUNT 4.14 10*6/uL (4.10-5.10); RED CELL DISTRI WIDTH 13.1 % (0-14.5); WHITE BLOOD COUNT 5.8 10*3/uL (4.8-10.8)
[2019-05-22 15:48] LABS: BILIRUBIN NEGATIVE (NEGATIVE); BLOOD NEGATIVE (NEGATIVE); GLUCOSE NEGATIVE (NEGATIVE); KETONE NEGATIVE (NEGATIVE); LEUKO ESTERASE NEGATIVE (NEGATIVE); NITRITE NEGATIVE (NEGATIVE); PH 7.5 (5.0-9.0); UROBILINOGEN 0.2 E.U./dl (0.2-1.0)
[2019-05-22 15:49] LABS: WBC 0-2 wbc/hpf (0-5)
[2019-05-22 15:50] LABS: BACTERIA TRACE; EPITHELIAL CELLS 0-2
[2019-05-22 15:58] LABS: ACT PARTIAL THROMBO TIME 27.9 SECONDS (20.0-32.1); INTERNATIONAL NORM RATIO 0.9 (2.0-3.5)
[2019-05-22 16:05] LABS: ALBUMIN 4.2 gm/dl (3.1-4.5); ALKALINE PHOSPHATASE 103 U/L (45-117); BUN 14 mg/dl (7-24); CHLORIDE 96 mmol/L (98-107); CREATININE 0.79 mg/dL (0.55-1.02); LIPASE 147 U/L (73-393); POTASSIUM 4.2 mmol/L (3.5-5.1); SGOT/AST 21 IU/L (3-35); SGPT/ALT 27 U/L (12-78); SODIUM 130 mmol/L (136-145)
== END 2019-05-22 21:49 | disposition home or self-care (01) ==
LOC: ED 13:44
PROVIDERS: Emergency Medicine; Nurse Practitioner Family
DX: R10.31 Right lower quadrant pain (principal); I48.91 Unspecified atrial fibrillation; I10 Essential (primary) hypertension; K21.9 Gastro-esophageal reflux disease without esophagitis; E78.5 Hyperlipidemia, unspecified; G62.9 Polyneuropathy, unspecified; M19.90 Unspecified osteoarthritis, unspecified site; Z88.8 Allergy status to other drugs, medicaments and biological substances; Z79.899 Other long term (current) drug therapy; Z79.82 Long term (current) use of aspirin; Z86.73 Personal history of transient ischemic attack (TIA), and cerebral infarction without residual deficits

== ENCOUNTER 2019-11-12 16:48 | Emergency (ER) | payer MEDICARE ==
[~2019-11-12] VITALS: Ht 154.9 cm; Wt 61.2 kg
[2019-11-12 19:00] LABS: BASO % 0.7 % (0.0-1.0); EOS # 0.1 10*3/uL (0.0-0.4); EOS % 2.3 % (1.0-4.0); HEMATOCRIT 39.3 % (37.0-47.0); LYMPH # 1.3 10*3/uL (1.3-4.4); LYMPH % 21.4 % (27.0-41.0); MEAN CELL VOLUME 95.9 fl (81.0-99.0); MEAN CORPUSCULAR HGB 30.7 pg (27.0-31.0); MEAN CORPUSCULAR HGB CONC 32.1 g/dl (33.0-37.0); MEAN PLATELET VOLUME 10.5 fl (9.6-12.3); MONO # 0.6 10*3/uL (0.1-1.0); MONO % 9.3 % (3.0-9.0); NEUT # 4.1 10*3/uL (2.3-7.9); PLATELET COUNT AUTOMATED 213 10*3/uL (130-400); RED CELL DISTRI WIDTH 12.6 % (0-14.5); WHITE BLOOD COUNT 6.1 10*3/uL (4.8-10.8)
[2019-11-12 19:15] LABS: ALBUMIN 3.9 gm/dl (3.1-4.5); ALKALINE PHOSPHATASE 89 U/L (45-117); BUN 15 mg/dl (7-24); CHLORIDE 98 mmol/L (98-107); CREATININE 0.65 mg/dL (0.55-1.02); POTASSIUM 4.2 mmol/L (3.5-5.1); SGOT/AST 20 IU/L (3-35); SGPT/ALT 21 U/L (12-78); SODIUM 132 mmol/L (136-145)
[2019-11-12 19:35] LABS: BACTERIA 1+; BILIRUBIN NEGATIVE (NEGATIVE); BLOOD NEGATIVE (NEGATIVE); CLARITY SL CLOUDY (CLEAR); COLOR YELLOW (YELLOW); GLUCOSE NEGATIVE (NEGATIVE); KETONE NEGATIVE (NEGATIVE); LEUKO ESTERASE 2+ (NEGATIVE); NITRITE NEGATIVE (NEGATIVE); SPECIFIC GRAVITY 1.005 (1.005-1.030); UROBILINOGEN 0.2 E.U./dl (0.2-1.0); WBC TNTC wbc/hpf (0-5)
[2019-11-12] MEDS ORDERED: KEFLEX500 M1 PO (19:44)
== END 2019-11-12 19:49 | disposition home or self-care (01) ==
LOC: ED 16:48
PROVIDERS: Physician Assistant
DX: J06.9 Acute upper respiratory infection, unspecified (principal); I10 Essential (primary) hypertension; M19.90 Unspecified osteoarthritis, unspecified site; K21.9 Gastro-esophageal reflux disease without esophagitis; E78.00 Pure hypercholesterolemia, unspecified; I48.91 Unspecified atrial fibrillation; Z88.8 Allergy status to other drugs, medicaments and biological substances; Z79.899 Other long term (current) drug therapy

== ENCOUNTER 2020-04-19 17:58 | Emergency (ER) | payer MEDICARE ==
[~2020-04-19] VITALS: Wt 67.1 kg
[~2020-04-19 17:58] MED LIST changes: +KEFLEX500 M1 PO
[2020-04-19 18:32] LABS: BASO % 0.6 % (0.0-1.0); EOS # 0.2 10*3/uL (0.0-0.4); EOS % 2.5 % (1.0-4.0); HEMATOCRIT 39.2 % (37.0-47.0); LYMPH # 1.6 10*3/uL (1.3-4.4); LYMPH % 25.8 % (27.0-41.0); MEAN CORPUSCULAR HGB CONC 31.9 g/dl (33.0-37.0); MEAN PLATELET VOLUME 10.3 fl (9.6-12.3); MONO # 0.6 10*3/uL (0.1-1.0); MONO % 9.5 % (3.0-9.0); NEUT # 3.9 10*3/uL (2.3-7.9); NEUT % 61.4 % (47.0-73.0); PLATELET COUNT AUTOMATED 229 10*3/uL (130-400); RED BLOOD COUNT 4.17 10*6/uL (4.10-5.10); RED CELL DISTRI WIDTH 13.2 % (0-14.5); WHITE BLOOD COUNT 6.3 10*3/uL (4.8-10.8)
[2020-04-19 18:50] LABS: ALBUMIN 3.7 gm/dl (3.1-4.5); ALKALINE PHOSPHATASE 89 U/L (45-117); BUN 21 mg/dl (7-24); CHLORIDE 99 mmol/L (98-107); POTASSIUM 3.7 mmol/L (3.5-5.1); SGOT/AST 19 IU/L (3-35); SGPT/ALT 25 U/L (12-78); SODIUM 135 mmol/L (136-145); TOTAL PROTEIN 7.5 gm/dL (6.4-8.2)
[2020-04-19 19:05] LABS: TROPONIN I < 0.015 ng/ml (<0.045)
[2020-04-19 19:07] LABS: ACT PARTIAL THROMBO TIME 21.4 SECONDS (20.0-32.1)
== END 2020-04-19 21:44 | disposition home or self-care (01) ==
LOC: ED 17:58
PROVIDERS: Emergency Medicine
DX: R07.89 Other chest pain (principal); I10 Essential (primary) hypertension; K21.9 Gastro-esophageal reflux disease without esophagitis; M19.90 Unspecified osteoarthritis, unspecified site; I48.91 Unspecified atrial fibrillation; Z88.8 Allergy status to other drugs, medicaments and biological substances; Z79.2 Long term (current) use of antibiotics; Z79.899 Other long term (current) drug therapy; Z79.82 Long term (current) use of aspirin; Z98.890 Other specified postprocedural states; Z86.73 Personal history of transient ischemic attack (TIA), and cerebral infarction without residual deficits

== ENCOUNTER 2020-05-26 18:55 | Emergency (ER) | payer MEDICARE ==
[~2020-05-26] VITALS: Ht 154.9 cm; Wt 59.0 kg
[2020-05-26 20:12] LABS: BILIRUBIN Negative (Negative); BLOOD Negative (Negative); CLARITY Clear (Clear); COLOR Yellow (Yellow); GLUCOSE Negative (Negative); KETONE Negative (Negative); LEUKO ESTERASE 2+ (Negative); NITRITE Negative (Negative)
[2020-05-26 20:39] LABS: BASO # 0.1 10*3/uL (0.0-0.1); BASO % 1.1 % (0.0-1.0); EOS # 0.2 10*3/uL (0.0-0.4); EOS % 3.3 % (1.0-4.0); HEMATOCRIT 38.2 % (37.0-47.0); LYMPH # 1.4 10*3/uL (1.3-4.4); LYMPH % 24.8 % (27.0-41.0); MEAN CELL VOLUME 94.3 fl (81.0-99.0); MEAN CORPUSCULAR HGB 30.1 pg (27.0-31.0); MEAN CORPUSCULAR HGB CONC 31.9 g/dl (33.0-37.0); MEAN PLATELET VOLUME 10.2 fl (9.6-12.3); MONO # 0.6 10*3/uL (0.1-1.0); MONO % 9.7 % (3.0-9.0); NEUT # 3.5 10*3/uL (2.3-7.9); NEUT % 60.7 % (47.0-73.0); PLATELET COUNT AUTOMATED 224 10*3/uL (130-400); RED BLOOD COUNT 4.05 10*6/uL (4.10-5.10); RED CELL DISTRI WIDTH 12.9 % (0-14.5); WHITE BLOOD COUNT 5.7 10*3/uL (4.8-10.8)
[2020-05-26 20:50] LABS: BACTERIA 1+
[2020-05-26 21:12] LABS: ALBUMIN 3.6 gm/dl (3.1-4.5); ALKALINE PHOSPHATASE 90 U/L (45-117); BUN 15 mg/dl (7-24); CHLORIDE 100 mmol/L (98-107); CREATININE 0.68 mg/dL (0.55-1.02); LIPASE 100 U/L (73-393); POTASSIUM 4.3 mmol/L (3.5-5.1); SGOT/AST 13 IU/L (3-35); SGPT/ALT 21 U/L (12-78); SODIUM 133 mmol/L (136-145); TOTAL PROTEIN 7.6 gm/dL (6.4-8.2)
[2020-05-27] MEDS ORDERED: CEPHALEXIN500 M1 PO (00:11)
== END 2020-05-27 00:36 | disposition home or self-care (01) ==
LOC: ED 18:55
PROVIDERS: Emergency Medicine; Internal Medicine
DX: N39.0 Urinary tract infection, site not specified (principal); I10 Essential (primary) hypertension; M19.90 Unspecified osteoarthritis, unspecified site; I48.91 Unspecified atrial fibrillation; E78.5 Hyperlipidemia, unspecified; Z88.8 Allergy status to other drugs, medicaments and biological substances; Z79.899 Other long term (current) drug therapy; Z79.82 Long term (current) use of aspirin; Z79.2 Long term (current) use of antibiotics; Z98.890 Other specified postprocedural states

== ENCOUNTER 2020-07-13 03:33 | Observation (INO) | payer MEDICARE ==
[~2020-07-13] VITALS: Ht 154.9 cm; Wt 61.0 kg
[2020-07-13] VITALS (9 sets, daily range): BP systolic 125–169; BP diastolic 53–93
[~2020-07-13 03:33] MED LIST changes: +CEPHALEXIN500 M1 PO
[2020-07-13 03:50] LABS: BASO % 0.6 % (0.0-1.0); EOS # 0.2 10*3/uL (0.0-0.4); EOS % 2.8 % (1.0-4.0); HEMATOCRIT 40.8 % (37.0-47.0); LYMPH % 30.4 % (27.0-41.0); MEAN CELL VOLUME 93.4 fl (81.0-99.0); MEAN CORPUSCULAR HGB 30.4 pg (27.0-31.0); MEAN CORPUSCULAR HGB CONC 32.6 g/dl (33.0-37.0); MEAN PLATELET VOLUME 9.9 fl (9.6-12.3); MONO # 0.7 10*3/uL (0.1-1.0); MONO % 9.7 % (3.0-9.0); NEUT # 3.8 10*3/uL (2.3-7.9); NEUT % 56.2 % (47.0-73.0); PLATELET COUNT AUTOMATED 219 10*3/uL (130-400); RED BLOOD COUNT 4.37 10*6/uL (4.10-5.10); RED CELL DISTRI WIDTH 13.1 % (0-14.5); WHITE BLOOD COUNT 6.7 10*3/uL (4.8-10.8)
[2020-07-13 04:05] LABS: ALBUMIN 3.8 gm/dl (3.1-4.5); ALKALINE PHOSPHATASE 92 U/L (45-117); BUN 19 mg/dl (7-24); CHLORIDE 96 mmol/L (98-107); CREATININE 0.72 mg/dL (0.55-1.02); POTASSIUM 3.8 mmol/L (3.5-5.1); SGOT/AST 22 IU/L (3-35); SGPT/ALT 24 U/L (12-78); SODIUM 131 mmol/L (136-145); TOTAL PROTEIN 7.5 gm/dL (6.4-8.2)
[2020-07-13 04:11] LABS: TROPONIN I < 0.015 ng/ml (<0.045)
[2020-07-13 04:39] LABS: BILIRUBIN Negative (Negative); BLOOD Negative (Negative); CLARITY Clear (Clear); COLOR Yellow (Yellow); GLUCOSE Negative (Negative); KETONE Negative (Negative); LEUKO ESTERASE Trace (Negative); NITRITE Negative (Negative); PH 7.5 (4.5-8.0); SPECIFIC GRAVITY <= 1.005 (1.001-1.030); UROBILINOGEN 0.2 E.U./dl (0.0-1.0)
[2020-07-13 04:58] LABS: BACTERIA TRACE
[2020-07-13 09:58] LABS: BUN 13 mg/dl (7-24); CHLORIDE 96 mmol/L (98-107); CREATININE 0.66 mg/dL (0.55-1.02); POTASSIUM 3.6 mmol/L (3.5-5.1); SODIUM 132 mmol/L (136-145)
[2020-07-13] MEDS ORDERED: CALCITRATE200 MG PO (11:34)
[2020-07-14] VITALS: BP 160/80
[2020-07-14 07:00] LABS: BASO # 0.1 10*3/uL (0.0-0.1); BASO % 0.9 % (0.0-1.0); EOS # 0.1 10*3/uL (0.0-0.4); EOS % 1.6 % (1.0-4.0); HEMATOCRIT 40.6 % (37.0-47.0); LYMPH # 1.3 10*3/uL (1.3-4.4); LYMPH % 19.2 % (27.0-41.0); MEAN CELL VOLUME 92.9 fl (81.0-99.0); MEAN CORPUSCULAR HGB 30.2 pg (27.0-31.0); MEAN CORPUSCULAR HGB CONC 32.5 g/dl (33.0-37.0); MEAN PLATELET VOLUME 10.9 fl (9.6-12.3); MONO # 0.7 10*3/uL (0.1-1.0); MONO % 10.8 % (3.0-9.0); NEUT # 4.6 10*3/uL (2.3-7.9); NEUT % 67.2 % (47.0-73.0); PLATELET COUNT AUTOMATED 214 10*3/uL (130-400); RED BLOOD COUNT 4.37 10*6/uL (4.10-5.10); WHITE BLOOD COUNT 6.8 10*3/uL (4.8-10.8)
[2020-07-14 07:10] LABS: BUN 15 mg/dl (7-24); CHLORIDE 95 mmol/L (98-107); CREATININE 0.67 mg/dL (0.55-1.02); FREE T4 1.07 ng/dl (0.76-1.46); POTASSIUM 3.8 mmol/L (3.5-5.1); SODIUM 131 mmol/L (136-145)
[2020-07-14 07:50] VITALS: BP 160/92
[2020-07-14 09:55] VITALS: BP 140/82
[2020-07-14 13:00] VITALS: BP 132/68
[2020-07-14] MEDS ORDERED: METOPROLOL SUCC50 M1 PO (14:57)
[2020-07-14] MEDS ORDERED: XARELTO20 M1 PO (14:57)
== END 2020-07-14 16:10 | disposition home or self-care (01) ==
LOC: ED 03:33 → EDHOLD 05:01 → 5E 09:21
PROVIDERS: Internal Medicine; ADMIT Internal Medicine; ATTEND Internal Medicine
DX: R07.89 Other chest pain (principal); I48.91 Unspecified atrial fibrillation; E87.8 Other disorders of electrolyte and fluid balance, not elsewhere classified; E78.5 Hyperlipidemia, unspecified; I10 Essential (primary) hypertension; K21.9 Gastro-esophageal reflux disease without esophagitis; M19.90 Unspecified osteoarthritis, unspecified site; E55.9 Vitamin D deficiency, unspecified; Z86.73 Personal history of transient ischemic attack (TIA), and cerebral infarction without residual deficits; Z88.6 Allergy status to analgesic agent; Z98.890 Other specified postprocedural states

== ENCOUNTER 2020-07-26 16:48 | Emergency (ER) | payer MEDICARE ==
[~2020-07-26 16:48] MED LIST changes: +CALCITRATE200 MG PO; +METOPROLOL SUCC50 M1 PO; +XARELTO20 M1 PO
[2020-07-26 19:00] LABS: BASO % 0.5 % (0.0-1.0); EOS # 0.1 10*3/uL (0.0-0.4); EOS % 1.6 % (1.0-4.0); HEMATOCRIT 36.4 % (37.0-47.0); LYMPH # 1.3 10*3/uL (1.3-4.4); LYMPH % 20.7 % (27.0-41.0); MEAN CELL VOLUME 94.5 fl (81.0-99.0); MEAN CORPUSCULAR HGB 30.4 pg (27.0-31.0); MEAN CORPUSCULAR HGB CONC 32.1 g/dl (33.0-37.0); MEAN PLATELET VOLUME 10.3 fl (9.6-12.3); MONO # 0.6 10*3/uL (0.1-1.0); MONO % 9.5 % (3.0-9.0); NEUT # 4.3 10*3/uL (2.3-7.9); NEUT % 67.4 % (47.0-73.0); PLATELET COUNT AUTOMATED 234 10*3/uL (130-400); RED BLOOD COUNT 3.85 10*6/uL (4.10-5.10); WHITE BLOOD COUNT 6.4 10*3/uL (4.8-10.8)
[2020-07-26 19:12] LABS: ACT PARTIAL THROMBO TIME 30.5 SECONDS (20.0-32.1)
[2020-07-26 19:18] LABS: ALBUMIN 3.4 gm/dl (3.1-4.5); ALKALINE PHOSPHATASE 81 U/L (45-117); BUN 14 mg/dl (7-24); CHLORIDE 98 mmol/L (98-107); CREATININE 0.66 mg/dL (0.55-1.02); LIPASE 174 U/L (73-393); POTASSIUM 3.9 mmol/L (3.5-5.1); SGOT/AST 16 IU/L (3-35); SGPT/ALT 19 U/L (12-78); SODIUM 133 mmol/L (136-145)
[2020-07-26 19:19] LABS: TROPONIN I < 0.015 ng/ml (<0.045)
[2020-07-26 19:20] LABS: BILIRUBIN Negative (Negative); BLOOD Negative (Negative); CLARITY Clear (Clear); COLOR Yellow (Yellow); GLUCOSE Negative (Negative); KETONE Negative (Negative); LEUKO ESTERASE 2+ (Negative); NITRITE Negative (Negative); PH 6.5 (4.5-8.0); UROBILINOGEN 0.2 E.U./dl (0.0-1.0)
[2020-07-26 19:55] LABS: BACTERIA TRACE; MUCOUS TRACE; RBC 0-2 rbc/hpf (0-2)
[2020-07-26] MEDS ORDERED: CIPRO500 MG PO (21:37)
== END 2020-07-26 21:45 | disposition home or self-care (01) ==
LOC: ED 16:48
PROVIDERS: Emergency Medicine
DX: K40.90 Unilateral inguinal hernia, without obstruction or gangrene, not specified as recurrent (principal); N39.0 Urinary tract infection, site not specified; Z88.8 Allergy status to other drugs, medicaments and biological substances; Z79.899 Other long term (current) drug therapy; Z79.82 Long term (current) use of aspirin; Z98.890 Other specified postprocedural states

== ENCOUNTER 2020-07-28 12:50 | Emergency (ER) | payer MEDICARE ==
[~2020-07-28] VITALS: Wt 59.0 kg
[~2020-07-28 12:50] MED LIST changes: +CIPRO500 MG PO
[2020-07-28 13:46] LABS: BASO % 0.6 % (0.0-1.0); EOS # 0.1 10*3/uL (0.0-0.4); EOS % 1.3 % (1.0-4.0); HEMATOCRIT 38.5 % (37.0-47.0); LYMPH # 1.1 10*3/uL (1.3-4.4); LYMPH % 14.8 % (27.0-41.0); MEAN CORPUSCULAR HGB 30.9 pg (27.0-31.0); MEAN CORPUSCULAR HGB CONC 33.2 g/dl (33.0-37.0); MEAN PLATELET VOLUME 10.1 fl (9.6-12.3); MONO # 0.6 10*3/uL (0.1-1.0); NEUT # 5.3 10*3/uL (2.3-7.9); PLATELET COUNT AUTOMATED 264 10*3/uL (130-400); RED BLOOD COUNT 4.14 10*6/uL (4.10-5.10); RED CELL DISTRI WIDTH 12.8 % (0-14.5); WHITE BLOOD COUNT 7.1 10*3/uL (4.8-10.8)
[2020-07-28 14:05] LABS: ALKALINE PHOSPHATASE 87 U/L (45-117); BUN 11 mg/dl (7-24); CHLORIDE 96 mmol/L (98-107); CREATININE 0.69 mg/dL (0.55-1.02); POTASSIUM 4.1 mmol/L (3.5-5.1); SGOT/AST 17 IU/L (3-35); SGPT/ALT 21 U/L (12-78); SODIUM 131 mmol/L (136-145); TOTAL PROTEIN 7.7 gm/dL (6.4-8.2)
[2020-07-28 15:00] LABS: BILIRUBIN Negative (Negative); BLOOD Negative (Negative); CLARITY Clear (Clear); COLOR Yellow (Yellow); GLUCOSE Negative (Negative); KETONE Negative (Negative); LEUKO ESTERASE Trace (Negative); NITRITE Negative (Negative); SPECIFIC GRAVITY 1.015 (1.001-1.030); UROBILINOGEN 0.2 E.U./dl (0.0-1.0)
[2020-07-28 15:16] LABS: BACTERIA TRACE; HYALINE CAST 0-2; MUCOUS TRACE; RBC 0-2 rbc/hpf (0-2)
== END 2020-07-28 18:01 | disposition home or self-care (01) ==
LOC: ED 12:50
PROVIDERS: Physician Assistant
DX: R10.9 Unspecified abdominal pain (principal); Z79.899 Other long term (current) drug therapy; Z79.82 Long term (current) use of aspirin; Z98.890 Other specified postprocedural states

== ENCOUNTER 2020-08-25 15:28 | Emergency (ER) | payer MEDICARE ==
[~2020-08-25] VITALS: Ht 154.9 cm; Wt 61.2 kg
[~2020-08-25 15:28] MED LIST changes: +DOK COLACE100 MG PO; +ZOFRAN4 MG PO
[2020-08-25 18:03] LABS: BASO # 0.1 10*3/uL (0.0-0.1); BASO % 0.6 % (0.0-1.0); EOS # 0.2 10*3/uL (0.0-0.4); EOS % 2.3 % (1.0-4.0); HEMATOCRIT 39.5 % (37.0-47.0); LYMPH # 0.9 10*3/uL (1.3-4.4); LYMPH % 10.9 % (27.0-41.0); MEAN CELL VOLUME 92.9 fl (81.0-99.0); MEAN CORPUSCULAR HGB 30.6 pg (27.0-31.0); MEAN CORPUSCULAR HGB CONC 32.9 g/dl (33.0-37.0); MEAN PLATELET VOLUME 10.4 fl (9.6-12.3); MONO # 0.7 10*3/uL (0.1-1.0); MONO % 8.9 % (3.0-9.0); NEUT # 6.3 10*3/uL (2.3-7.9); NEUT % 76.9 % (47.0-73.0); PLATELET COUNT AUTOMATED 255 10*3/uL (130-400); RED BLOOD COUNT 4.25 10*6/uL (4.10-5.10); RED CELL DISTRI WIDTH 13.2 % (0-14.5); WHITE BLOOD COUNT 8.2 10*3/uL (4.8-10.8)
[2020-08-25 18:19] LABS: ALBUMIN 3.5 gm/dl (3.1-4.5); ALKALINE PHOSPHATASE 93 U/L (45-117); BUN 12 mg/dl (7-24); CHLORIDE 95 mmol/L (98-107); CREATININE 0.59 mg/dL (0.55-1.02); SGOT/AST 20 IU/L (3-35); SGPT/ALT 20 U/L (12-78); SODIUM 128 mmol/L (136-145); TOTAL PROTEIN 7.5 gm/dL (6.4-8.2)
[2020-08-25 18:50] LABS: BILIRUBIN Negative (Negative); BLOOD Negative (Negative); CLARITY Clear (Clear); COLOR Yellow (Yellow); GLUCOSE Negative (Negative); KETONE Negative (Negative); LEUKO ESTERASE 1+ (Negative); NITRITE Negative (Negative); PH 7.5 (4.5-8.0); UROBILINOGEN 0.2 E.U./dl (0.0-1.0)
[2020-08-25 19:03] LABS: BACTERIA TRACE; EPITHELIAL CELLS 21-30; HYALINE CAST 0-2; RBC 0-2 rbc/hpf (0-2)
== END 2020-08-25 21:19 | disposition home or self-care (01) ==
LOC: ED 15:28
PROVIDERS: Physician Assistant
DX: S01.91XA Laceration without foreign body of unspecified part of head, initial encounter (principal); Z88.8 Allergy status to other drugs, medicaments and biological substances; Z79.899 Other long term (current) drug therapy; Z79.82 Long term (current) use of aspirin; Z98.890 Other specified postprocedural states; W19.XXXA Unspecified fall, initial encounter; Y93.89 Activity, other specified; Y92.89 Other specified places as the place of occurrence of the external cause; Y99.8 Other external cause status

== ENCOUNTER 2020-11-01 01:08 | Emergency (ER) | payer MEDICARE ==
[~2020-11-01] VITALS: Ht 170.1 cm; Wt 69.9 kg
[~2020-11-01 01:08] MED LIST changes: +METOPROLOL SUC100 M1 PO
[2020-11-01 01:30] LABS: BASO % 0.5 % (0.0-1.0); EOS # 0.3 10*3/uL (0.0-0.4); EOS % 3.3 % (1.0-4.0); HEMATOCRIT 36.8 % (37.0-47.0); LYMPH # 1.6 10*3/uL (1.3-4.4); LYMPH % 18.7 % (27.0-41.0); MEAN CELL VOLUME 91.5 fl (81.0-99.0); MEAN CORPUSCULAR HGB 29.4 pg (27.0-31.0); MEAN CORPUSCULAR HGB CONC 32.1 g/dl (33.0-37.0); MEAN PLATELET VOLUME 10.3 fl (9.6-12.3); MONO # 0.9 10*3/uL (0.1-1.0); NEUT # 5.9 10*3/uL (2.3-7.9); NEUT % 67.3 % (47.0-73.0); PLATELET COUNT AUTOMATED 233 10*3/uL (130-400); RED BLOOD COUNT 4.02 10*6/uL (4.10-5.10); RED CELL DISTRI WIDTH 13.9 % (0-14.5); WHITE BLOOD COUNT 8.7 10*3/uL (4.8-10.8)
[2020-11-01 01:49] LABS: ALBUMIN 3.6 gm/dl (3.1-4.5); ALKALINE PHOSPHATASE 87 U/L (45-117); BUN 14 mg/dl (7-24); CHLORIDE 102 mmol/L (98-107); CREATININE 0.64 mg/dL (0.55-1.02); POTASSIUM 3.6 mmol/L (3.5-5.1); SGOT/AST 21 IU/L (3-35); SGPT/ALT 20 U/L (12-78); SODIUM 134 mmol/L (136-145); TOTAL PROTEIN 7.3 gm/dL (6.4-8.2)
[2020-11-01 01:51] LABS: TROPONIN I < 0.015 ng/ml (<0.045)
== END 2020-11-01 05:43 | disposition home or self-care (01) ==
LOC: ED 01:08
PROVIDERS: Internal Medicine
DX: I48.20 Chronic atrial fibrillation, unspecified (principal); D64.9 Anemia, unspecified; Z88.8 Allergy status to other drugs, medicaments and biological substances; Z79.899 Other long term (current) drug therapy; Z79.82 Long term (current) use of aspirin; Z98.890 Other specified postprocedural states

== ENCOUNTER 2021-03-10 17:28 | Emergency (ER) | payer MEDICARE | END 2021-03-10 21:14 | disposition left against medical advice (07) | LOC: ED 17:28 | DX: M54.9 Dorsalgia, unspecified (principal); Z53.21 Procedure and treatment not carried out due to patient leaving prior to being seen by health care provider ==

== ENCOUNTER 2021-10-23 14:08 | Emergency (ER) | payer MEDICARE ==
[~2021-10-23] VITALS: Ht 157.4 cm; Wt 52.2 kg
[~2021-10-23 14:08] MED LIST changes: +BUPRENORPHINE1 EACH TD; +CEFUROXIME AXE500 MG PO; +FUROSEMIDE20 M1 PO
[2021-10-23 15:50] LABS: BASO % 0.5 % (0.0-1.0); EOS # 0.1 10*3/uL (0.0-0.4); EOS % 1.6 % (1.0-4.0); LYMPH # 1.2 10*3/uL (1.3-4.4); LYMPH % 19.3 % (27.0-41.0); MEAN CELL VOLUME 93.6 fl (81.0-99.0); MEAN CORPUSCULAR HGB 29.7 pg (27.0-31.0); MEAN CORPUSCULAR HGB CONC 31.7 g/dl (33.0-37.0); MEAN PLATELET VOLUME 11.2 fl (9.6-12.3); MONO # 0.6 10*3/uL (0.1-1.0); MONO % 9.4 % (3.0-9.0); NEUT # 4.4 10*3/uL (2.3-7.9); NEUT % 68.9 % (47.0-73.0); PLATELET COUNT AUTOMATED 199 10*3/uL (130-400); RED BLOOD COUNT 4.38 10*6/uL (4.10-5.10); RED CELL DISTRI WIDTH 14.9 % (0-14.5); WHITE BLOOD COUNT 6.3 10*3/uL (4.8-10.8)
[2021-10-23 16:03] LABS: BUN 20 mg/dl (7-24); CHLORIDE 107 mmol/L (98-107); CREATININE 0.81 mg/dL (0.55-1.02); POTASSIUM 4.1 mmol/L (3.5-5.1); SODIUM 140 mmol/L (136-145)
[2021-10-23 17:25] LABS: BILIRUBIN Negative (Negative); BLOOD Negative (Negative); CLARITY Clear (Clear); COLOR Yellow (Yellow); GLUCOSE Negative (Negative); KETONE Negative (Negative); LEUKO ESTERASE 1+ (Negative); NITRITE Negative (Negative); PH 6.5 (4.5-8.0)
[2021-10-23 17:31] LABS: BACTERIA 2+; MUCOUS 1+; WBC 21-30 wbc/hpf (0-5)
== END 2021-10-23 19:01 | disposition home or self-care (01) ==
LOC: ED 14:08
PROVIDERS: Emergency Medicine
DX: I48.20 Chronic atrial fibrillation, unspecified (principal); I11.0 Hypertensive heart disease with heart failure; I50.9 Heart failure, unspecified; E78.5 Hyperlipidemia, unspecified; K21.9 Gastro-esophageal reflux disease without esophagitis; I48.91 Unspecified atrial fibrillation; Z88.6 Allergy status to analgesic agent; Z79.899 Other long term (current) drug therapy

== ENCOUNTER 2022-10-03 17:02 | Emergency (ER) | payer MEDICARE ==
[2022-10-03 17:20] LABS: BASO # 0.1 10*3/uL (0.0-0.1); BASO % 0.8 % (0.0-1.0); EOS # 0.2 10*3/uL (0.0-0.4); EOS % 2.3 % (1.0-4.0); HEMATOCRIT 41.4 % (37.0-47.0); LYMPH # 1.7 10*3/uL (1.3-4.4); MEAN CELL VOLUME 94.1 fl (81.0-99.0); MEAN CORPUSCULAR HGB 30.7 pg (27.0-31.0); MEAN CORPUSCULAR HGB CONC 32.6 g/dl (33.0-37.0); MEAN PLATELET VOLUME 10.8 fl (9.6-12.3); MONO # 0.6 10*3/uL (0.1-1.0); MONO % 8.3 % (3.0-9.0); NEUT # 4.1 10*3/uL (2.3-7.9); PLATELET COUNT AUTOMATED 206 10*3/uL (130-400); RED CELL DISTRI WIDTH 14.8 % (0-14.5); WHITE BLOOD COUNT 6.6 10*3/uL (4.8-10.8)
[2022-10-03 17:44] LABS: TOTAL PROTEIN 8.1 gm/dL (6.0-8.0)
== END 2022-10-03 19:58 | disposition home or self-care (01) ==
LOC: ED 17:02
PROVIDERS: Nurse Practitioner Family
DX: S22.088A Other fracture of T11-T12 vertebra, initial encounter for closed fracture (principal); S22.078A Other fracture of T9-T10 vertebra, initial encounter for closed fracture; N28.9 Disorder of kidney and ureter, unspecified; Z86.73 Personal history of transient ischemic attack (TIA), and cerebral infarction without residual deficits; I10 Essential (primary) hypertension; M19.90 Unspecified osteoarthritis, unspecified site; K21.9 Gastro-esophageal reflux disease without esophagitis; E78.00 Pure hypercholesterolemia, unspecified; I48.91 Unspecified atrial fibrillation; W01.0XXA Fall on same level from slipping, tripping and stumbling without subsequent striking against object, initial encounter; Y93.89 Activity, other specified; Y92.89 Other specified places as the place of occurrence of the external cause; Y99.8 Other external cause status; Z88.6 Allergy status to analgesic agent; Z98.890 Other specified postprocedural states

== ENCOUNTER 2024-10-01 22:26 | Emergency (ER) | payer MEDICARE ==
[~2024-10-01] VITALS: Ht 160 cm; Wt 44.0 kg
[2024-10-02 00:49] LABS: BASO # 0.0 10*3/uL (0.0-0.1); BASO % 0.5 % (0.0-1.0); EOS # 0.2 10*3/uL (0.0-0.4); EOS % 2.2 % (1.0-4.0); MEAN CELL VOLUME 93.8 fl (81.0-99.0); MEAN CORPUSCULAR HGB 30.5 pg (27.0-31.0); MEAN PLATELET VOLUME 10.6 fl (9.6-12.3); MONO # 0.5 10*3/uL (0.1-1.0); MONO % 6.5 % (3.0-9.0); NEUT # 5.7 10*3/uL (2.3-7.9); NEUT % 73.4 % (47.0-73.0); NUCLEATED RED BLOOD CELL 0.0 % (0.0-0.0); NUCLEATED RED BLOOD CELL 0.0 10*3/uL (0.0-0.0); PLATELET COUNT AUTOMATED 156 10*3/uL (130-400); RED CELL DISTRI WIDTH 15.9 % (0-14.5)
[2024-10-02 01:07] LABS: BUN 29 mg/dl (9-23)
== END 2024-10-02 03:47 | disposition short-term general hospital (02) ==
LOC: ED 22:26
PROVIDERS: Emergency Medicine
DX: S06.6X0A Traumatic subarachnoid hemorrhage without loss of consciousness, initial encounter (principal); M25.551 Pain in right hip; I48.91 Unspecified atrial fibrillation; E78.5 Hyperlipidemia, unspecified; Z88.6 Allergy status to analgesic agent; Z79.899 Other long term (current) drug therapy; I11.0 Hypertensive heart disease with heart failure; I50.9 Heart failure, unspecified; K21.9 Gastro-esophageal reflux disease without esophagitis; G62.9 Polyneuropathy, unspecified; Z86.73 Personal history of transient ischemic attack (TIA), and cerebral infarction without residual deficits; Z98.890 Other specified postprocedural states; W22.8XXA Striking against or struck by other objects, initial encounter; Y93.89 Activity, other specified; Y92.89 Other specified places as the place of occurrence of the external cause; Y99.8 Other external cause status

== ENCOUNTER 2024-10-23 18:10 | Emergency (ER) | payer MEDICARE ==
[~2024-10-23] VITALS: Ht 170.1 cm; Wt 56.7 kg
[2024-10-23 20:22] LABS: BILIRUBIN Negative (Negative); BLOOD 3+ (Negative); CLARITY Turbid (Clear); COLOR Yellow (Yellow); KETONE Negative (Negative); LEUKO ESTERASE 3+ (Negative); NITRITE Positive (Negative); PH 5.5 (4.5-8.0); SPECIFIC GRAVITY 1.015 (1.001-1.030); UROBILINOGEN 1.0 E.U./dl (0.0-1.0)
[2024-10-23 20:28] LABS: BACTERIA 2+; RBC 31-40 rbc/hpf (0-2); WBC TNTC wbc/hpf (0-5)
[2024-10-23 21:16] LABS: BASO # 0.1 10*3/uL (0.0-0.1); BASO % 0.6 % (0.0-1.0); EOS # 0.2 10*3/uL (0.0-0.4); EOS % 2.2 % (1.0-4.0); MEAN CELL VOLUME 100.3 fl (81.0-99.0); MEAN CORPUSCULAR HGB 30.9 pg (27.0-31.0); MEAN PLATELET VOLUME 9.9 fl (9.6-12.3); MONO # 0.7 10*3/uL (0.1-1.0); MONO % 8.9 % (3.0-9.0); NEUT # 5.7 10*3/uL (2.3-7.9); NEUT % 68.2 % (47.0-73.0); NUCLEATED RED BLOOD CELL 0.0 % (0.0-0.0); NUCLEATED RED BLOOD CELL 0.0 10*3/uL (0.0-0.0); PLATELET COUNT AUTOMATED 290 10*3/uL (130-400); RED CELL DISTRI WIDTH 17.6 % (0-14.5)
[2024-10-23 21:34] LABS: BUN 35.0 mg/dl (9-23)
[2024-10-23] MEDS ORDERED: Ciprofloxacin Hydrochloride 500 MG TAB PO ONE (22:20)
[2024-10-23] MEDS ORDERED: CIPRO500 MG PO (22:24)
== END 2024-10-23 23:13 | disposition home or self-care (01) ==
LOC: ED 18:10
PROVIDERS: Nurse Practitioner Family
DX: N30.01 Acute cystitis with hematuria (principal); E86.0 Dehydration; Z88.6 Allergy status to analgesic agent; Z79.899 Other long term (current) drug therapy; Z98.890 Other specified postprocedural states

== ENCOUNTER 2024-11-24 16:29 | Emergency (ER) | payer MEDICARE | END 2024-11-24 19:16 | disposition home or self-care (01) | LOC: ED 16:29 | DX: S00.03XA Contusion of scalp, initial encounter (principal); S09.90XA Unspecified injury of head, initial encounter; E78.5 Hyperlipidemia, unspecified; K21.9 Gastro-esophageal reflux disease without esophagitis; I48.91 Unspecified atrial fibrillation; I11.0 Hypertensive heart disease with heart failure; I50.9 Heart failure, unspecified; Z88.8 Allergy status to other drugs, medicaments and biological substances; Z98.890 Other specified postprocedural states; W19.XXXA Unspecified fall, initial encounter; Y93.89 Activity, other specified; Y92.89 Other specified places as the place of occurrence of the external cause; Y99.8 Other external cause status ==

== ENCOUNTER 2024-12-05 16:21 | Emergency (ER) | payer MEDICARE ==
[2024-12-05] MEDS ORDERED: BUPRENORPHINE1 EACH TD (16:53)
[2024-12-05] MEDS ORDERED: AMITRIPTYLINE25 MG PO (16:53)
[2024-12-05] MEDS ORDERED: CALCIUM 600-VI1 EAC3 PO (16:54)
[2024-12-05] MEDS ORDERED: ARTHRITIS PAIN150 G1 T (16:54)
[2024-12-05] MEDS ORDERED: FLORASTOR250 MG PO (16:54)
[2024-12-05] MEDS ORDERED: POKONZA10 MEQ PO (16:55)
[2024-12-05] MEDS ORDERED: LASIX40 MG PO (16:55)
[2024-12-05] MEDS ORDERED: METOPROLOL SUC100 M1 PO (16:55)
[2024-12-05 16:56] LABS: BILIRUBIN Negative (Negative); BLOOD Negative (Negative); CLARITY Clear (Clear); COLOR Yellow (Yellow); KETONE Negative (Negative); LEUKO ESTERASE Negative (Negative); NITRITE Negative (Negative); PH 7.5 (4.5-8.0); SPECIFIC GRAVITY 1.015 (1.001-1.030); UROBILINOGEN 1.0 E.U./dl (0.0-1.0)
[2024-12-05] MEDS ORDERED: MELATONIN3 MG PO (16:56)
[2024-12-05] MEDS ORDERED: OXYCODONE HCL5 MG PO (16:56)
[2024-12-05 18:04] LABS: BASO # 0.0 10*3/uL (0.0-0.1); BASO % 0.5 % (0.0-1.0); EOS # 0.1 10*3/uL (0.0-0.4); EOS % 1.1 % (1.0-4.0); MEAN CELL VOLUME 99.8 fl (81.0-99.0); MEAN CORPUSCULAR HGB 30.8 pg (27.0-31.0); MEAN PLATELET VOLUME 11.1 fl (9.6-12.3); MONO # 0.5 10*3/uL (0.1-1.0); MONO % 6.4 % (3.0-9.0); NEUT # 5.7 10*3/uL (2.3-7.9); NEUT % 72.1 % (47.0-73.0); NUCLEATED RED BLOOD CELL 0.0 % (0.0-0.0); NUCLEATED RED BLOOD CELL 0.0 10*3/uL (0.0-0.0); PLATELET COUNT AUTOMATED 189 10*3/uL (130-400); RED CELL DISTRI WIDTH 16.0 % (0-14.5)
[2024-12-05 18:22] LABS: BUN 29.0 mg/dl (9-23); SGPT/ALT 9.0 U/L (5-49)
[2024-12-05] MEDS ORDERED: DECADRON4 MG PO (19:39)
[2024-12-06] MEDS ORDERED: DECADRON4 MG PO (13:47)
== END 2024-12-05 21:19 | disposition home or self-care (01) ==
LOC: ED 16:21
PROVIDERS: Emergency Medicine
DX: U07.1 COVID-19 (principal); R41.82 Altered mental status, unspecified; I48.91 Unspecified atrial fibrillation

== ENCOUNTER 2024-12-06 08:46 | Inpatient (IN) | payer MEDICARE ==
[~2024-12-06] VITALS: Ht 152.4 cm; Wt 49.1 kg
[~2024-12-06 08:46] MED LIST changes: +ARTHRITIS PAIN150 G1 T; +CALCIUM 600-VI1 EAC3 PO; +DECADRON4 MG PO; +FLORASTOR250 MG PO; +LASIX40 MG PO; +MELATONIN3 MG PO; +OXYCODONE HCL5 MG PO; +POKONZA10 MEQ PO
[2024-12-06 09:32] VITALS: BP 121/75
[2024-12-06 09:49] LABS: BASO # 0.1 10*3/uL (0.0-0.1); BASO % 0.7 % (0.0-1.0); EOS # 0.1 10*3/uL (0.0-0.4); EOS % 1.6 % (1.0-4.0); MEAN CELL VOLUME 101.4 fl (81.0-99.0); MEAN CORPUSCULAR HGB 31.5 pg (27.0-31.0); MEAN PLATELET VOLUME 11.2 fl (9.6-12.3); MONO # 0.5 10*3/uL (0.1-1.0); MONO % 6.5 % (3.0-9.0); NEUT # 5.9 10*3/uL (2.3-7.9); NEUT % 72.5 % (47.0-73.0); NUCLEATED RED BLOOD CELL 0.0 % (0.0-0.0); NUCLEATED RED BLOOD CELL 0.0 10*3/uL (0.0-0.0); PLATELET COUNT AUTOMATED 189 10*3/uL (130-400); RED CELL DISTRI WIDTH 17.2 % (0-14.5)
[2024-12-06 09:51] LABS: BUN 32.0 mg/dl (9-23)
[2024-12-06] MEDS ORDERED: FUROSEMIDE 40 MG/4 ML VIAL IV ONE (10:05)
[2024-12-06] MEDS ORDERED: Dexamethasone Sodium Phospha 4 MG/ML VIAL IV ONE (10:20)
[2024-12-06 10:52] VITALS: BP 110/73
[2024-12-06] MEDS ORDERED: BISACODYL 5 MG TAB PO PRN (12:00)
[2024-12-06 13:00] VITALS: BP 112/73
[2024-12-06] MEDS ORDERED: REMDESIVIR 200 MG in SODIUM CHLORIDE 0.9% 210 ML IV ONE (13:00)
[2024-12-06] MEDS ORDERED: DECADRON4 MG PO (13:47)
[2024-12-06] MEDS ORDERED: ACETAMINOPHEN 325 MG TAB PO PRN (15:35)
[2024-12-06] MEDS ORDERED: Acetaminophen/Hydrocodone 5 MG/325 MG TABLET PO PRN (15:35)
[2024-12-06 16:00] VITALS: BP 123/79
[2024-12-06] MEDS ORDERED: FOAM BANDAGE HEEL T ONE (16:45)
[2024-12-06] MEDS ORDERED: FOAM BANDAGE 1 EACH BANDAGE T ONE (16:45)
[2024-12-06] MEDS ORDERED: Lactobacillus Acidophilus/LA 1 TAB TAB PO SCH (18:00)
[2024-12-06] MEDS ORDERED: CALCIUM CARBONATE/VITAMIN D3 500 MG/200 IU TABLET PO SCH (18:00)
[2024-12-06] MEDS ORDERED: DICLOFENAC SODIUM 100 GM TUBE T SCH (18:00)
[2024-12-06 19:01] LABS: BILIRUBIN Negative (Negative); BLOOD Negative (Negative); CLARITY Clear (Clear); COLOR Dark Yellow (Yellow); KETONE Trace (Negative); LEUKO ESTERASE 1+ (Negative); NITRITE Negative (Negative); PH 5.5 (4.5-8.0); SPECIFIC GRAVITY 1.015 (1.001-1.030); UROBILINOGEN 1.0 E.U./dl (0.0-1.0)
[2024-12-06] MEDS ORDERED: METOPROLOL SUCCINATE XR 25 MG TAB PO ONE (19:15)
[2024-12-06 19:16] LABS: BACTERIA 1+; EPITHELIAL CELLS 0-2; HYALINE CAST 41-50; RBC 0-2 rbc/hpf (0-2)
[2024-12-06] MEDS ORDERED: METOPROLOL SUCCINATE XR 100 MG TAB PO ONE (19:20)
[2024-12-06 20:00] VITALS: BP 107/66
[2024-12-07] VITALS: BP 107/66
[2024-12-07 06:14] LABS: BASO # 0.0 10*3/uL (0.0-0.1); BASO % 0.1 % (0.0-1.0); EOS # 0.0 10*3/uL (0.0-0.4); EOS % 0.0 % (1.0-4.0); MEAN CELL VOLUME 99.0 fl (81.0-99.0); MEAN CORPUSCULAR HGB 30.9 pg (27.0-31.0); MEAN PLATELET VOLUME 11.4 fl (9.6-12.3); MONO # 0.3 10*3/uL (0.1-1.0); MONO % 3.4 % (3.0-9.0); NEUT # 7.0 10*3/uL (2.3-7.9); NEUT % 84.5 % (47.0-73.0); NUCLEATED RED BLOOD CELL 0.0 % (0.0-0.0); NUCLEATED RED BLOOD CELL 0.0 10*3/uL (0.0-0.0); PLATELET COUNT AUTOMATED 202 10*3/uL (130-400); RED CELL DISTRI WIDTH 15.9 % (0-14.5); SGPT/ALT 8.0 U/L (5-49)
[2024-12-07 06:17] LABS: BUN 47.0 mg/dl (9-23); LDL CHOLESTEROL 88.0 mg/dL (9-159)
[2024-12-07 08:00] VITALS: BP 93/80
[2024-12-07] MEDS ORDERED: Dexamethasone Sodium Phospha 4 MG/ML VIAL IV SCH (10:00)
[2024-12-07] MEDS ORDERED: FUROSEMIDE 20 MG/2 ML VIAL IV SCH (10:00)
[2024-12-07] MEDS ORDERED: POTASSIUM CHLORIDE 10 MEQ TAB PO SCH (10:00)
[2024-12-07] MEDS ORDERED: METOPROLOL SUCCINATE XR 25 MG TAB PO SCH (10:00)
[2024-12-07] MEDS ORDERED: METOPROLOL SUCCINATE XR 100 MG TAB PO SCH (10:00)
[2024-12-07] MEDS ORDERED: SODIUM CHLORIDE 0.9% 500 ML IV ONE ×3 (10:45→17:35)
[2024-12-07 12:00] VITALS: BP 126/83
[2024-12-07] MEDS ORDERED: REMDESIVIR 100 MG in SODIUM CHLORIDE 0.9% 230 ML IV SCH (13:00)
[2024-12-07 16:00] VITALS: BP 121/56
[2024-12-07 20:00] VITALS: BP 118/88
[2024-12-08] VITALS: BP 123/86
[2024-12-08 02:00] VITALS: BP 123/86
[2024-12-08 05:26] LABS: BUN 47.0 mg/dl (9-23)
[2024-12-08 06:32] LABS: BASO # 0.0 10*3/uL (0.0-0.1); BASO % 0.1 % (0.0-1.0); EOS # 0.0 10*3/uL (0.0-0.4); EOS % 0.0 % (1.0-4.0); MEAN CELL VOLUME 98.8 fl (81.0-99.0); MEAN CORPUSCULAR HGB 31.1 pg (27.0-31.0); MEAN PLATELET VOLUME 11.7 fl (9.6-12.3); MONO # 0.5 10*3/uL (0.1-1.0); MONO % 3.9 % (3.0-9.0); NEUT # 11.7 10*3/uL (2.3-7.9); NEUT % 89.8 % (47.0-73.0); NUCLEATED RED BLOOD CELL 0.0 % (0.0-0.0); NUCLEATED RED BLOOD CELL 0.0 10*3/uL (0.0-0.0); PLATELET COUNT AUTOMATED 188 10*3/uL (130-400); RED CELL DISTRI WIDTH 16.0 % (0-14.5)
[2024-12-08 08:00] VITALS: BP 131/87
[2024-12-08] MEDS ORDERED: LEVOFLOXACIN 750 MG TAB PO ONE (12:15)
[2024-12-08 12:44] VITALS: BP 142/92
[2024-12-08] MEDS ORDERED: CHAIR CUSHION DEVICE ONE (13:01)
[2024-12-08] MEDS ORDERED: HEEL PROTECTOR DEVICE ONE (13:01)
[2024-12-08] MEDS ORDERED: FOAM BANDAGE HEEL T ONE (13:01)
[2024-12-08] MEDS ORDERED: FOAM BANDAGE 1 EACH BANDAGE T ONE (13:01)
[2024-12-08 16:00] VITALS: BP 116/79
[2024-12-08 20:00] VITALS: BP 118/64
[2024-12-09] VITALS: BP 134/95
[2024-12-09 05:09] LABS: BUN 43.0 mg/dl (9-23)
[2024-12-09 06:21] LABS: MEAN CELL VOLUME 97.1 fl (81.0-99.0); MEAN CORPUSCULAR HGB 31.1 pg (27.0-31.0); MEAN PLATELET VOLUME 11.6 fl (9.6-12.3); NUCLEATED RED BLOOD CELL 0.0 % (0.0-0.0); NUCLEATED RED BLOOD CELL 0.0 10*3/uL (0.0-0.0); PLATELET COUNT AUTOMATED 145 10*3/uL (130-400); RED CELL DISTRI WIDTH 16.0 % (0-14.5)
[2024-12-09 06:22] LABS: MANUAL DIFF REFLEX YES
[2024-12-09 06:54] LABS: PLATELET SUFFICIENCY NORMAL (NORMAL)
[2024-12-09 08:00] VITALS: BP 142/92
[2024-12-09] MEDS ORDERED: fentaNYL 12 MCG PATCH T SCH (08:00)
[2024-12-09 12:00] VITALS: BP 135/96
[2024-12-09] MEDS ORDERED: FUROSEMIDE 20 MG/2 ML VIAL IV ONE (12:40)
[2024-12-09 16:00] VITALS: BP 125/59
[2024-12-09 20:00] VITALS: BP 126/93
[2024-12-10] VITALS: BP 135/83
[2024-12-10 06:30] LABS: MEAN CELL VOLUME 96.6 fl (81.0-99.0); MEAN CORPUSCULAR HGB 31.2 pg (27.0-31.0); MEAN PLATELET VOLUME 11.1 fl (9.6-12.3); NUCLEATED RED BLOOD CELL 0.0 % (0.0-0.0); NUCLEATED RED BLOOD CELL 0.0 10*3/uL (0.0-0.0); PLATELET COUNT AUTOMATED 137 10*3/uL (130-400); RED CELL DISTRI WIDTH 15.9 % (0-14.5)
[2024-12-10 07:11] LABS: BUN 36 mg/dl (9-23)
[2024-12-10 08:00] VITALS: BP 136/98
[2024-12-10 08:36] LABS: MANUAL DIFF REFLEX YES
[2024-12-10 08:38] LABS: PLATELET SUFFICIENCY NORMAL (NORMAL)
[2024-12-10] MEDS ORDERED: LEVOFLOXACIN 500 MG TAB PO SCH (10:00)
[2024-12-10] MEDS ORDERED: FUROSEMIDE 20 MG TAB PO SCH (10:45)
[2024-12-10 12:00] VITALS: BP 145/65
[2024-12-10 16:00] VITALS: BP 127/76
[2024-12-10 20:00] VITALS: BP 133/92
[2024-12-11] VITALS: BP 143/86
[2024-12-11 06:37] LABS: BUN 28 mg/dl (9-23)
[2024-12-11 06:45] LABS: MEAN CELL VOLUME 97.3 fl (81.0-99.0); MEAN CORPUSCULAR HGB 30.7 pg (27.0-31.0); MEAN PLATELET VOLUME 12.2 fl (9.6-12.3); NUCLEATED RED BLOOD CELL 0.0 % (0.0-0.0); NUCLEATED RED BLOOD CELL 0.0 10*3/uL (0.0-0.0); PLATELET COUNT AUTOMATED 124 10*3/uL (130-400); RED CELL DISTRI WIDTH 15.7 % (0-14.5)
[2024-12-11 06:46] LABS: MANUAL DIFF REFLEX YES
[2024-12-11 07:45] LABS: PLATELET SUFFICIENCY LOW (NORMAL)
[2024-12-11 08:00] VITALS: BP 154/94
[2024-12-11 16:00] VITALS: BP 129/76
[2024-12-11 20:00] VITALS: BP 139/93
[2024-12-12] VITALS: BP 144/90
[2024-12-12 05:37] LABS: BUN 29 mg/dl (9-23)
[2024-12-12 06:35] LABS: MEAN CELL VOLUME 96.7 fl (81.0-99.0); MEAN CORPUSCULAR HGB 31.0 pg (27.0-31.0); MEAN PLATELET VOLUME 12.8 fl (9.6-12.3); NUCLEATED RED BLOOD CELL 0.0 % (0.0-0.0); NUCLEATED RED BLOOD CELL 0.0 10*3/uL (0.0-0.0); PLATELET COUNT AUTOMATED 107 10*3/uL (130-400); RED CELL DISTRI WIDTH 15.7 % (0-14.5)
[2024-12-12 07:17] LABS: MANUAL DIFF REFLEX YES
[2024-12-12 07:21] LABS: PLATELET SUFFICIENCY LOW (NORMAL)
[2024-12-12 08:00] VITALS: BP 140/88
[2024-12-12] MEDS ORDERED: FUROSEMIDE 40 MG TAB PO SCH (10:00)
[2024-12-12] MEDS ORDERED: DEXAMETHASONE6 MG PO (10:44)
[2024-12-12] MEDS ORDERED: OXYCODONE HCL5 MG PO (10:44)
[2024-12-12] MEDS ORDERED: TOPROL XL50 M1 PO (10:44)
[2024-12-12] MEDS ORDERED: BUPRENORPHINE1 EACH T (10:44)
== END 2024-12-12 19:30 | DRG 70 ==
LOC: ED 08:46 → EDHOLD 10:29 → 4E 10:29
PROVIDERS: Emergency Medicine; Student in an Organized Health Care Education/Training Program; ADMIT Internal Medicine; ATTEND Internal Medicine
DX: G93.41 Metabolic encephalopathy (principal); E43 Unspecified severe protein-calorie malnutrition; U07.1 COVID-19; N17.0 Acute kidney failure with tubular necrosis; E87.20 Acidosis, unspecified; N39.0 Urinary tract infection, site not specified; I24.89 Other forms of acute ischemic heart disease; I13.0 Hypertensive heart and chronic kidney disease with heart failure and stage 1 through stage 4 chronic kidney disease, or unspecified chronic kidney disease; I50.9 Heart failure, unspecified; N18.32 Chronic kidney disease, stage 3b; Z66 Do not resuscitate; D53.9 Nutritional anemia, unspecified; I48.91 Unspecified atrial fibrillation; G62.9 Polyneuropathy, unspecified; D75.1 Secondary polycythemia; E16.2 Hypoglycemia, unspecified; Z51.5 Encounter for palliative care; Z88.0 Allergy status to penicillin; Z88.8 Allergy status to other drugs, medicaments and biological substances; Z82.49 Family history of ischemic heart disease and other diseases of the circulatory system; Z79.899 Other long term (current) drug therapy

== ENCOUNTER 2025-02-17 17:55 | Emergency (ER) | payer MEDICARE ==
[~2025-02-17] VITALS: Wt 44.9 kg
[~2025-02-17 17:55] MED LIST changes: +BUPRENORPHINE1 EACH T; +DEXAMETHASONE6 MG PO; +TOPROL XL50 M1 PO
== END 2025-02-17 19:38 | disposition home or self-care (01) ==
LOC: ED 17:55
DX: S70.02XA Contusion of left hip, initial encounter (principal); I48.91 Unspecified atrial fibrillation; I11.0 Hypertensive heart disease with heart failure; I50.9 Heart failure, unspecified; K21.9 Gastro-esophageal reflux disease without esophagitis; Z88.0 Allergy status to penicillin; Z88.8 Allergy status to other drugs, medicaments and biological substances; Z98.890 Other specified postprocedural states; Z86.73 Personal history of transient ischemic attack (TIA), and cerebral infarction without residual deficits; W19.XXXA Unspecified fall, initial encounter; Y93.89 Activity, other specified; Y92.89 Other specified places as the place of occurrence of the external cause; Y99.8 Other external cause status

== ENCOUNTER 2025-02-24 14:20 | Observation (INO) | payer MEDICARE ==
[~2025-02-24] VITALS: Ht 162.6 cm; Wt 40.8 kg
[2025-02-24 14:38] VITALS: BP 132/82
[2025-02-24] MEDS ORDERED: TYLENOL EXTRA500 M2 PO (14:50)
[2025-02-24] MEDS ORDERED: MIRALAX17 GM PO (14:50)
[2025-02-24] MEDS ORDERED: RIVASTIGMINE TAR3 M1 PO (14:51)
[2025-02-24] MEDS ORDERED: MULTI FOR HER1 EACH PO (14:51)
[2025-02-24] MEDS ORDERED: SENOKOT8.6 MG PO (14:51)
[2025-02-24 15:43] LABS: BASO # 0.1 10*3/uL (0.0-0.1); BASO % 0.7 % (0.0-1.0); EOS # 0.4 10*3/uL (0.0-0.4); EOS % 5.1 % (1.0-4.0); MEAN CELL VOLUME 98.8 fl (81.0-99.0); MEAN CORPUSCULAR HGB 31.2 pg (27.0-31.0); MEAN PLATELET VOLUME 9.7 fl (9.6-12.3); MONO # 0.6 10*3/uL (0.1-1.0); MONO % 7.9 % (3.0-9.0); NEUT # 5.0 10*3/uL (2.3-7.9); NEUT % 69.0 % (47.0-73.0); NUCLEATED RED BLOOD CELL 0.0 % (0.0-0.0); NUCLEATED RED BLOOD CELL 0.0 10*3/uL (0.0-0.0); PLATELET COUNT AUTOMATED 229 10*3/uL (130-400); RED CELL DISTRI WIDTH 19.3 % (0-14.5)
[2025-02-24 16:13] LABS: BUN 22 mg/dl (9-23)
[2025-02-24 17:50] VITALS: BP 109/76
[2025-02-24 18:00] VITALS: BP 128/90
[2025-02-24 20:00] VITALS: BP 106/70
[2025-02-25] VITALS: BP 113/82
[2025-02-25] MEDS ORDERED: FOAM BANDAGE HEEL T ONE (05:19)
[2025-02-25 05:50] LABS: BUN 18 mg/dl (9-23)
[2025-02-25 06:06] LABS: BASO # 0.1 10*3/uL (0.0-0.1); BASO % 0.8 % (0.0-1.0); EOS # 0.5 10*3/uL (0.0-0.4); EOS % 6.9 % (1.0-4.0); MEAN CELL VOLUME 100.2 fl (81.0-99.0); MEAN CORPUSCULAR HGB 30.8 pg (27.0-31.0); MEAN PLATELET VOLUME 10.2 fl (9.6-12.3); MONO # 0.6 10*3/uL (0.1-1.0); MONO % 8.0 % (3.0-9.0); NEUT # 4.7 10*3/uL (2.3-7.9); NEUT % 64.4 % (47.0-73.0); NUCLEATED RED BLOOD CELL 0.0 % (0.0-0.0); NUCLEATED RED BLOOD CELL 0.0 10*3/uL (0.0-0.0); PLATELET COUNT AUTOMATED 228 10*3/uL (130-400); RED CELL DISTRI WIDTH 19.4 % (0-14.5)
[2025-02-25 08:00] VITALS: BP 115/53
[2025-02-25] MEDS ORDERED: METOPROLOL SUCCINATE XR 50 MG TAB PO SCH (10:00)
[2025-02-25] MEDS ORDERED: DOCUSATE SODIUM 100 MG CAP PO SCH (10:00)
[2025-02-25] MEDS ORDERED: FUROSEMIDE 40 MG TAB PO SCH (10:00)
[2025-02-25 12:00] VITALS: BP 117/77
[2025-02-25] MEDS ORDERED: HEEL PROTECTOR DEVICE ONE ×2 (12:49)
[2025-02-25] MEDS ORDERED: FOAM BANDAGE 1 EACH BANDAGE T ONE (12:49)
[2025-02-25] MEDS ORDERED: CHAIR CUSHION DEVICE ONE (12:49)
[2025-02-26] MEDS ORDERED: FUROSEMIDE 40 MG/4 ML VIAL IV SCH (10:00)
== END 2025-02-25 16:26 ==
LOC: ED 14:20 → 4E 16:51 → EDHOLD 16:51 → 4E 17:15
PROVIDERS: Emergency Medicine; Student in an Organized Health Care Education/Training Program; ADMIT Internal Medicine; ATTEND Internal Medicine
DX: I11.0 Hypertensive heart disease with heart failure (principal); I50.9 Heart failure, unspecified; R09.02 Hypoxemia; R79.89 Other specified abnormal findings of blood chemistry; R79.81 Abnormal blood-gas level; Z79.899 Other long term (current) drug therapy; Z98.890 Other specified postprocedural states

== ENCOUNTER 2025-02-25 17:54 | Inpatient (IN) | payer MEDICARE ==
[~2025-02-25] VITALS: Ht 162.5 cm; Wt 41.4 kg
[~2025-02-25 17:54] MED LIST changes: +MIRALAX17 GM PO; +MULTI FOR HER1 EACH PO; +RIVASTIGMINE TAR3 M1 PO; +SENOKOT8.6 MG PO; +TYLENOL EXTRA500 M2 PO
[2025-02-25 18:07] VITALS: BP 129/88
[2025-02-25 19:12] VITALS: BP 104/57
[2025-02-25] MEDS ORDERED: ACETAMINOPHEN 500 MG TAB PO PRN (19:45)
[2025-02-25 22:00] VITALS: BP 129/82
[2025-02-26] VITALS: BP 117/88
[2025-02-26 08:00] VITALS: BP 132/79
[2025-02-26] MEDS ORDERED: Lactobacillus Acidophilus/LA 1 TAB TAB PO SCH (10:00)
[2025-02-26] MEDS ORDERED: METOPROLOL SUCCINATE XR 50 MG TAB PO SCH (10:00)
[2025-02-26] MEDS ORDERED: CALCIUM CARBONATE/VITAMIN D3 500 MG/200 IU TABLET PO SCH (10:00)
[2025-02-26] MEDS ORDERED: POTASSIUM CHLORIDE 10 MEQ TAB PO SCH (10:00)
[2025-02-26] MEDS ORDERED: Polyethylene Glycol 3350 17 GM PACKET PO SCH (10:00)
[2025-02-26] MEDS ORDERED: MULTIVITAMIN 1 TAB TAB PO SCH (10:00)
[2025-02-26] MEDS ORDERED: FUROSEMIDE 40 MG TAB PO SCH (10:00)
[2025-02-26 12:00] VITALS: BP 111/63
[2025-02-26] MEDS ORDERED: IOHEXOL 350 MG/ML 100 ML VIAL IV ONE (12:25)
[2025-02-26] MEDS ORDERED: SODIUM CHLORIDE 0.9% 100 ML BAG IV ONE (12:25)
[2025-02-26] MEDS ORDERED: HEPARIN SODIUM 250 ML IV SCH (14:10)
[2025-02-26 15:48] LABS: BASO # 0.1 10*3/uL (0.0-0.1); BASO % 0.8 % (0.0-1.0); EOS # 0.3 10*3/uL (0.0-0.4); EOS % 4.1 % (1.0-4.0); MEAN CELL VOLUME 98.6 fl (81.0-99.0); MEAN CORPUSCULAR HGB 31.5 pg (27.0-31.0); MEAN PLATELET VOLUME 10.0 fl (9.6-12.3); MONO # 0.5 10*3/uL (0.1-1.0); MONO % 6.1 % (3.0-9.0); NEUT # 5.8 10*3/uL (2.3-7.9); NEUT % 76.4 % (47.0-73.0); NUCLEATED RED BLOOD CELL 0.0 % (0.0-0.0); NUCLEATED RED BLOOD CELL 0.0 10*3/uL (0.0-0.0); PLATELET COUNT AUTOMATED 212 10*3/uL (130-400); RED CELL DISTRI WIDTH 19.3 % (0-14.5)
[2025-02-26 16:00] VITALS: BP 90/59
[2025-02-26 20:00] VITALS: BP 99/67
[2025-02-27] VITALS: BP 107/64
[2025-02-27 07:14] LABS: BASO # 0.1 10*3/uL (0.0-0.1); BASO % 0.9 % (0.0-1.0); EOS # 0.4 10*3/uL (0.0-0.4); EOS % 5.8 % (1.0-4.0); MEAN CELL VOLUME 101.0 fl (81.0-99.0); MEAN CORPUSCULAR HGB 31.3 pg (27.0-31.0); MEAN PLATELET VOLUME 10.1 fl (9.6-12.3); MONO # 0.5 10*3/uL (0.1-1.0); MONO % 7.1 % (3.0-9.0); NEUT # 4.6 10*3/uL (2.3-7.9); NEUT % 67.9 % (47.0-73.0); NUCLEATED RED BLOOD CELL 0.0 % (0.0-0.0); NUCLEATED RED BLOOD CELL 0.0 10*3/uL (0.0-0.0); PLATELET COUNT AUTOMATED 195 10*3/uL (130-400); RED CELL DISTRI WIDTH 19.7 % (0-14.5)
[2025-02-27 08:00] VITALS: BP 118/83
[2025-02-27 09:12] VITALS: BP 101/69
[2025-02-27 12:00] VITALS: BP 116/76
[2025-02-27 16:00] VITALS: BP 110/69
[2025-02-27] MEDS ORDERED: WARFARIN SODIUM 5 MG TAB PO SCH (18:00)
[2025-02-27 20:00] VITALS: BP 113/66
[2025-02-28] VITALS: BP 99/58
[2025-02-28 05:30] LABS: BUN 18 mg/dl (9-23)
[2025-02-28 06:07] LABS: BASO # 0.1 10*3/uL (0.0-0.1); BASO % 1.0 % (0.0-1.0); EOS # 0.3 10*3/uL (0.0-0.4); EOS % 5.3 % (1.0-4.0); MEAN CORPUSCULAR HGB 30.9 pg (27.0-31.0); MEAN PLATELET VOLUME 10.4 fl (9.6-12.3); MONO # 0.5 10*3/uL (0.1-1.0); MONO % 8.4 % (3.0-9.0); NEUT # 4.1 10*3/uL (2.3-7.9); NEUT % 65.1 % (47.0-73.0); NUCLEATED RED BLOOD CELL 0.0 % (0.0-0.0); NUCLEATED RED BLOOD CELL 0.0 10*3/uL (0.0-0.0); PLATELET COUNT AUTOMATED 195 10*3/uL (130-400); RED CELL DISTRI WIDTH 19.7 % (0-14.5)
[2025-02-28 06:49] LABS: MEAN CELL VOLUME 97.7 fl (81.0-99.0)
[2025-02-28 08:00] VITALS: BP 121/71
[2025-02-28] MEDS ORDERED: HEEL PROTECTOR DEVICE ONE (08:58)
[2025-02-28] MEDS ORDERED: FOAM BANDAGE 1 EACH BANDAGE T ONE (08:58)
[2025-02-28] MEDS ORDERED: FOAM BANDAGE HEEL T ONE (08:58)
[2025-02-28] MEDS ORDERED: Lovenox60 MG/0.6 PO (11:03)
[2025-02-28 12:00] VITALS: BP 124/79
[2025-02-28 16:00] VITALS: BP 123/81
[2025-02-28 20:00] VITALS: BP 123/72
[2025-03-01] VITALS (9 sets, daily range): BP systolic 125–220; BP diastolic 77–120
[2025-03-01 06:11] LABS: BASO # 0.1 10*3/uL (0.0-0.1); BASO % 0.9 % (0.0-1.0); EOS # 0.4 10*3/uL (0.0-0.4); EOS % 6.8 % (1.0-4.0); MEAN CELL VOLUME 97.6 fl (81.0-99.0); MEAN CORPUSCULAR HGB 31.2 pg (27.0-31.0); MEAN PLATELET VOLUME 10.4 fl (9.6-12.3); MONO # 0.4 10*3/uL (0.1-1.0); MONO % 7.6 % (3.0-9.0); NEUT # 3.3 10*3/uL (2.3-7.9); NEUT % 61.3 % (47.0-73.0); NUCLEATED RED BLOOD CELL 0.0 % (0.0-0.0); NUCLEATED RED BLOOD CELL 0.0 10*3/uL (0.0-0.0); PLATELET COUNT AUTOMATED 192 10*3/uL (130-400); RED CELL DISTRI WIDTH 19.7 % (0-14.5)
[2025-03-02] VITALS: BP 112/79
[2025-03-02 08:00] VITALS: BP 126/84
[2025-03-02] MEDS ORDERED: Coumadin3 MG PO (11:45)
[2025-03-02] MEDS ORDERED: WARFARIN SODIUM 3 MG TAB PO ONE (11:45)
[2025-03-02 12:00] VITALS: BP 116/74
[2025-03-02] MEDS ORDERED: Menthol/Zinc Oxide 4 GM THIN T PRN (15:00)
[2025-03-02 16:00] VITALS: BP 106/70
[2025-03-02] MEDS ORDERED: Menthol/Zinc Oxide 4 GM THIN T SCH (22:00)
== END 2025-03-02 18:18 | DRG 175 ==
LOC: ED 17:54 → EDHOLD 19:18 → 5E 19:18 → 4E 21:06 → 5E 02-27 06:49
PROVIDERS: Student in an Organized Health Care Education/Training Program; ADMIT Student in an Organized Health Care Education/Training Program; ATTEND Student in an Organized Health Care Education/Training Program
DX: I26.94 Multiple subsegmental thrombotic pulmonary emboli without acute cor pulmonale (principal); J96.01 Acute respiratory failure with hypoxia; N18.32 Chronic kidney disease, stage 3b; Z66 Do not resuscitate; I48.91 Unspecified atrial fibrillation; I12.9 Hypertensive chronic kidney disease with stage 1 through stage 4 chronic kidney disease, or unspecified chronic kidney disease; G62.9 Polyneuropathy, unspecified; N18.30 Chronic kidney disease, stage 3 unspecified; Z88.0 Allergy status to penicillin; Z88.8 Allergy status to other drugs, medicaments and biological substances; Z86.79 Personal history of other diseases of the circulatory system; Z85.9 Personal history of malignant neoplasm, unspecified; Z79.01 Long term (current) use of anticoagulants

== ENCOUNTER 2025-03-25 16:39 | Emergency (ER) | payer MEDICARE ==
[~2025-03-25 16:39] MED LIST changes: +Coumadin3 MG PO; +Lovenox60 MG/0.6 PO
[2025-03-25 17:36] LABS: BASO # 0.1 10*3/uL (0.0-0.1); BASO % 1.4 % (0.0-1.0); EOS # 0.1 10*3/uL (0.0-0.4); EOS % 2.5 % (1.0-4.0); MEAN CELL VOLUME 104.7 fl (81.0-99.0); MEAN CORPUSCULAR HGB 32.5 pg (27.0-31.0); MEAN PLATELET VOLUME 9.9 fl (9.6-12.3); MONO # 0.5 10*3/uL (0.1-1.0); MONO % 11.3 % (3.0-9.0); NEUT # 2.7 10*3/uL (2.3-7.9); NEUT % 61.6 % (47.0-73.0); NUCLEATED RED BLOOD CELL 0.0 % (0.0-0.0); NUCLEATED RED BLOOD CELL 0.0 10*3/uL (0.0-0.0); PLATELET COUNT AUTOMATED 227 10*3/uL (130-400); RED CELL DISTRI WIDTH 17.2 % (0-14.5)
[2025-03-25 17:51] LABS: BUN 18 mg/dl (9-23)
[2025-03-25] MEDS ORDERED: GUAIFENESIN 200 MG TAB PO ONE (18:05)
[2025-03-25] MEDS ORDERED: AZITHROMYCIN 250 MG TAB PO ONE (18:05)
[2025-03-25] MEDS ORDERED: AVPAK AZITHROM250 MG PO (18:12)
[2025-03-25] MEDS ORDERED: GUAIFENESIN200 MG PO (18:12)
[2025-03-26] MEDS ORDERED: STIMULANT LAXA1 EACH PO (19:48)
== END 2025-03-25 18:39 | disposition home or self-care (01) ==
LOC: ED 16:39
PROVIDERS: Internal Medicine
DX: J40 Bronchitis, not specified as acute or chronic (principal); I10 Essential (primary) hypertension; K21.9 Gastro-esophageal reflux disease without esophagitis; M19.90 Unspecified osteoarthritis, unspecified site; Z98.890 Other specified postprocedural states; Z88.0 Allergy status to penicillin; Z88.8 Allergy status to other drugs, medicaments and biological substances; Z86.73 Personal history of transient ischemic attack (TIA), and cerebral infarction without residual deficits

== ENCOUNTER 2025-03-26 18:59 | Inpatient (IN) | payer MEDICARE ==
[~2025-03-26] VITALS: Ht 162.5 cm; Wt 47.6 kg
[~2025-03-26 18:59] MED LIST changes: +AVPAK AZITHROM250 MG PO; +GUAIFENESIN200 MG PO
[2025-03-26 19:04] VITALS: BP 88/43
[2025-03-26 19:17] VITALS: BP 90/58
[2025-03-26 19:46] LABS: BASO # 0.0 10*3/uL (0.0-0.1); BASO % 0.8 % (0.0-1.0); EOS # 0.2 10*3/uL (0.0-0.4); EOS % 4.6 % (1.0-4.0); MEAN CELL VOLUME 103.3 fl (81.0-99.0); MEAN CORPUSCULAR HGB 32.4 pg (27.0-31.0); MEAN PLATELET VOLUME 9.9 fl (9.6-12.3); MONO # 0.5 10*3/uL (0.1-1.0); MONO % 13.4 % (3.0-9.0); NEUT # 1.7 10*3/uL (2.3-7.9); NEUT % 44.1 % (47.0-73.0); NUCLEATED RED BLOOD CELL 0.0 % (0.0-0.0); NUCLEATED RED BLOOD CELL 0.0 10*3/uL (0.0-0.0); PLATELET COUNT AUTOMATED 187 10*3/uL (130-400); RED CELL DISTRI WIDTH 16.9 % (0-14.5)
[2025-03-26] MEDS ORDERED: STIMULANT LAXA1 EACH PO (19:48)
[2025-03-26 20:15] LABS: BUN 22 mg/dl (9-23)
[2025-03-26] MEDS ORDERED: BUMETANIDE 1 MG/4 ML VIAL IV ONE (21:00)
[2025-03-26] MEDS ORDERED: ACETAMINOPHEN 650 MG SUPP R PRN (21:15)
[2025-03-26] MEDS ORDERED: Ondansetron Hydrochloride 4 MG/2 ML VIAL IV PRN (21:15)
[2025-03-26] MEDS ORDERED: Acetaminophen/Hydrocodone 5 MG/325 MG TABLET PO PRN (21:15)
[2025-03-26] MEDS ORDERED: ACETAMINOPHEN 325 MG TAB PO PRN (21:15)
[2025-03-26] MEDS ORDERED: BISACODYL 10 MG SUPP R PRN (21:15)
[2025-03-26] MEDS ORDERED: BISACODYL 5 MG TAB PO PRN (21:15)
[2025-03-26 22:04] VITALS: BP 100/48
[2025-03-27 00:30] VITALS: BP 129/74
[2025-03-27] MEDS ORDERED: DICLOFENAC SODI50 GM T (00:47)
[2025-03-27] MEDS ORDERED: POKONZA10 MEQ PO (00:50)
[2025-03-27] MEDS ORDERED: DICLOFENAC SODIUM 100 GM TUBE T PRN (01:00)
[2025-03-27 06:31] LABS: BASO # 0.0 10*3/uL (0.0-0.1); BASO % 0.9 % (0.0-1.0); EOS # 0.2 10*3/uL (0.0-0.4); EOS % 4.1 % (1.0-4.0); MEAN CELL VOLUME 103.3 fl (81.0-99.0); MEAN CORPUSCULAR HGB 31.6 pg (27.0-31.0); MEAN PLATELET VOLUME 10.3 fl (9.6-12.3); MONO # 0.6 10*3/uL (0.1-1.0); MONO % 14.1 % (3.0-9.0); NEUT # 2.1 10*3/uL (2.3-7.9); NEUT % 48.7 % (47.0-73.0); NUCLEATED RED BLOOD CELL 0.0 % (0.0-0.0); NUCLEATED RED BLOOD CELL 0.0 10*3/uL (0.0-0.0); PLATELET COUNT AUTOMATED 176 10*3/uL (130-400); RED CELL DISTRI WIDTH 17.1 % (0-14.5)
[2025-03-27 06:56] LABS: BUN 17 mg/dl (9-23)
[2025-03-27 08:00] VITALS: BP 116/90
[2025-03-27] MEDS ORDERED: FUROSEMIDE 20 MG/2 ML VIAL IV SCH ×2 (10:00→18:00)
[2025-03-27] MEDS ORDERED: POTASSIUM CHLORIDE 10 MEQ TAB PO SCH (10:00)
[2025-03-27] MEDS ORDERED: METOPROLOL SUCCINATE XR 50 MG TAB PO SCH (10:00)
[2025-03-27 12:00] VITALS: BP 102/62
[2025-03-27 16:00] VITALS: BP 114/64
[2025-03-27] MEDS ORDERED: WARFARIN SODIUM 3 MG TAB PO SCH (18:00)
[2025-03-27 20:00] VITALS: BP 102/69
[2025-03-28] VITALS: BP 110/73
[2025-03-28 06:09] LABS: BASO # 0.1 10*3/uL (0.0-0.1); BASO % 1.2 % (0.0-1.0); EOS # 0.2 10*3/uL (0.0-0.4); EOS % 3.8 % (1.0-4.0); MEAN CELL VOLUME 102.0 fl (81.0-99.0); MEAN CORPUSCULAR HGB 31.1 pg (27.0-31.0); MEAN PLATELET VOLUME 10.4 fl (9.6-12.3); MONO # 0.5 10*3/uL (0.1-1.0); MONO % 9.9 % (3.0-9.0); NEUT # 2.8 10*3/uL (2.3-7.9); NEUT % 55.5 % (47.0-73.0); NUCLEATED RED BLOOD CELL 0.0 % (0.0-0.0); NUCLEATED RED BLOOD CELL 0.0 10*3/uL (0.0-0.0); PLATELET COUNT AUTOMATED 219 10*3/uL (130-400); RED CELL DISTRI WIDTH 16.7 % (0-14.5)
[2025-03-28 06:35] LABS: BUN 14 mg/dl (9-23)
[2025-03-28 08:00] VITALS: BP 117/76
[2025-03-28 12:00] VITALS: BP 110/77
[2025-03-28] MEDS ORDERED: POKONZA10 MEQ PO (13:44)
[2025-03-28] MEDS ORDERED: LASIX20 MG PO (13:44)
== END 2025-03-28 18:36 | disposition home or self-care (01) | DRG 280 ==
LOC: ED 18:59 → EDHOLD 21:00 → 5E 21:00
PROVIDERS: Nurse Practitioner Family; Student in an Organized Health Care Education/Training Program; ADMIT Internal Medicine; ATTEND Internal Medicine
DX: I13.0 Hypertensive heart and chronic kidney disease with heart failure and stage 1 through stage 4 chronic kidney disease, or unspecified chronic kidney disease (principal); I50.33 Acute on chronic diastolic (congestive) heart failure; I21.4 Non-ST elevation (NSTEMI) myocardial infarction; D53.9 Nutritional anemia, unspecified; E83.51 Hypocalcemia; N18.32 Chronic kidney disease, stage 3b; K21.9 Gastro-esophageal reflux disease without esophagitis; I48.91 Unspecified atrial fibrillation; G62.9 Polyneuropathy, unspecified; D70.9 Neutropenia, unspecified; B35.1 Tinea unguium; Z66 Do not resuscitate; Z88.0 Allergy status to penicillin; Z86.73 Personal history of transient ischemic attack (TIA), and cerebral infarction without residual deficits; Z88.8 Allergy status to other drugs, medicaments and biological substances; Z86.711 Personal history of pulmonary embolism; Z79.01 Long term (current) use of anticoagulants; Z82.49 Family history of ischemic heart disease and other diseases of the circulatory system; Z80.9 Family history of malignant neoplasm, unspecified